=== PATIENT | male | born 1945 | race Caucasian/White ===

== ENCOUNTER 2017-11-04 19:31 | Inpatient (IN) | payer OTHER ==
[~2017-11-04] VITALS: Ht 185.4 cm; Wt 97.7 kg
[2017-11-04 20:38] LABS: BASO % 0.7 %; BASO ABS # 0.06 K/uL (0-0.2); EOS % 2.2 %; HEMATOCRIT 50.7 % (42-52); HEMOGLOBIN 17.6 g/dL (14.0-18.0); IG# 0.01 K/uL (0.00-0.02); LYMPH % 17.3 %; LYMPH ABS # 1.56 K/uL (1.2-3.4); MEAN CELL VOLUME 91.7 fL (80-100); MEAN CORPUSCULAR HEMOGLOBIN 31.8 pg (25-34); MEAN CORPUSCULAR HGB CONC 34.7 g/dl (32-36); MEAN PLATELET VOLUME 9.7 fL (7.4-10.4); MONO % 7.5 %; MONO ABS # 0.68 K/uL (0.11-0.59); NEUT % 72.2 %; NEUT ABS # 6.52 K/uL (1.4-6.5); PLATELET COUNT 198 K/uL (130-400); RED CELL DISTRIBUTION WIDTH CV 13.3 % (11.5-14.5); RED CELL DISTRIBUTION WIDTH SD 44.3 fL (36.4-46.3); WHITE BLOOD COUNT 9.03 K/uL (4.8-10.8)
[2017-11-04 21:03] LABS: BLOOD UREA NITROGEN 10 mg/dl (7-18); CALCIUM 9.5 mg/dl (8.5-10.1); CARBON DIOXIDE 29 mmol/L (21-32); CREATININE 1.03 mg/dl (0.60-1.40); GLUCOSE 123 mg/dl (70-99); POTASSIUM 3.4 mmol/L (3.5-5.1); SODIUM 138 mmol/L (136-145)
--- NOTE | 2017-11-04 21:27 | DIAGNOSTIC IMAGING REPORT ---
CHEST 2 VIEWS ROUTINE CLINICAL HISTORY: Shortness of breath and hemoptysis. COMPARISON STUDY: No previous studies for comparison. FINDINGS: Right infrahilar opacity corresponds to opacity projecting over the heart on lateral projection and suggests right middle lobe opacity although the right heart border is not obscured. Minimal left basilar opacity favors atelectasis. There is no pneumothorax or pleural effusion. Cardiac size is normal. There is no evidence for pulmonary edema. IMPRESSION: Moderate right lower lung opacity, likely within the right middle lobe. This favors pneumonia however atelectasis could appear similar. Radiographic follow up to ensure resolution is recommended to exclude the possibility of an underlying lesion. Electronically signed by: Feng Tatum M.D. 11/04/2017 9:26 PM Dictated Date/Time: 11/04/2017 9:24 PM
[2017-11-04] MEDS ORDERED: SODIUM CHLORIDE 0.9% 1000ML 1,000 ML IV STA (21:57)
[2017-11-04] MEDS ORDERED: OPTIRAY 320 IV PRN (22:30)
--- NOTE | 2017-11-04 22:47 | DIAGNOSTIC IMAGING REPORT ---
CT ANGIOGRAPHY OF THE CHEST, PULMONARY EMBOLUS PROTOCOL CLINICAL HISTORY: Hemoptysis. Elevated d-dimer. COMPARISON STUDY: Chest radiograph performed earlier today. TECHNIQUE: Following IV administration of 85 mL of Optiray-320, helical axial images of the chest were obtained utilizing the pulmonary embolus protocol. Maximal intensity projections and sagittal and coronal reformats were viewed on an independent 3D workstation. IV contrast was administered without complication. A dose lowering technique was utilized adhering to the principles of ALARA. CT DOSE: 611.58 mGy.cm FINDINGS: No central pulmonary embolus is identified. There is an 8 mm irregular nodular density within the anterior segment of the right upper lobe shown on image 168 of 12/20/1946. This is immediately adjacent to a subsegmental pulmonary artery. A small amount of intraluminal thrombus cannot be excluded. No definite pulmonary emboli are identified although segmental and subsegmental pulmonary arteries within the lower lobes are suboptimally assessed due to respiratory motion. The size of the heart is normal. There is no pericardial effusion. There are no enlarged thoracic lymph nodes. There is mild dilatation of the central pulmonary arteries. Lung hyperinflation with mild emphysema is noted. Moderate airspace opacities are noted within the right middle and right lower lobes with mild opacity within the left lower lobe. There are moderate secretions within the trachea and mainstem bronchi. There is no pneumothorax. There is no pleural effusion. No cavitation is present. No suspicious osseous lesions are present. This is a gallstone within the gallbladder. IMPRESSION: 1. No definite pulmonary emboli identified. 8 mm spiculated nodular density within the anterior segment of the right upper lobe which is immediately adjacent to a subsegmental pulmonary artery. A small amount of intraluminal thrombus would be difficult to exclude however an indeterminate but suspicious pulmonary nodule is favored. An infectious process could appear similar. A follow-up chest CT in one month is recommended given the possibility of a neoplasm. 2. Moderate airspace opacities within the right middle, right lower and left lower lobes. The findings favor pneumonia. However, aspiration or hemorrhage could appear similar. 3. Moderate secretions within the trachea and mainstem bronchi which raise the possibility of aspiration. 4. Emphysema. 5. Mild dilatation of the central pulmonary arteries which raises the possibility of pulmonary arterial hypertension. 6. Cholelithiasis. Electronically signed by: Feng Tatum M.D. 11/04/2017 10:46 PM Dictated Date/Time: 11/04/2017 10:26 PM
--- NOTE | 2017-11-04 23:00 | EMERGENCY ROOM VISIT NOTE ---
History Report prepared by Baljit: Sona Patiño Under the Supervision of: Dr. Megan Correa D.O. First contact with patient: 19:56 Chief Complaint: NOSE BLEED (MINOR) Stated Complaint: COUGHING UP BLOOD History of Present Illness The patient is a 72 year old male who presents to the Emergency Room with complaints of an episode of a nose bleed starting 22 hours ago. The patient states that last night he woke up and blew his nose with a little blood in it. He states that he sat up and ended up coughing up blood. He states that he went back to sleep and woke up this morning having his normal nasal drainage that he has every morning. He reports that he took NyQuil 10 hours ago and went back to sleep. He states that when he woke up he was coughing up a lot more blood. He reports that he does not feel like it is coming from his chest. The patient complains of chills, feeling jittery, and weakness. The patient denies recent pneumonia, chest cold, being around someone sick, nausea, hematuria, chest pain , hematochezia, and fevers. The patient denies the use of blood thinners and notes he uses Motrin, Advil, Tylenol, and Aleve once a year. Source of History: patient Onset: 22 hours ago Position: nose Quality: other (bleeding) Timing: other (episode) Associated Symptoms: + chills, + cough (with blood), + weakness, No fevers, No chest pain, No nausea, No hematochezia, No urinary symptoms (hematuria) Note: The patient complains of feeling jittery. Review of Systems See HPI for pertinent positives & negatives. A total of 10 systems reviewed and were otherwise negative. Past Medical & Surgical Medical Problems: (1) No Known Active Medical Problems (2) Respiratory failure, acute Family History Patient reports no known family medical history. Social History Smoking Status: Current Every Day Smoker Marital Status: single Housing Status: lives alone Current/Historical Medications Scheduled Amoxicillin & Pot Clavulanate (Augmentin 875-125 mg), 1 TAB PO BID Lisinopril (Lisinopril), 5 MG PO QAM Prednisone Tab (Prednisone), 10 MG PO UD Scheduled PRN Albuterol Hfa (Ventolin Hfa), 2 PUFFS INH Q6H PRN for SOB/Wheezing Benzonatate (Benzonatate), 100 MG PO Q8H PRN for Cough Allergies Coded Allergies: No Known Allergies (Unverified , 11/04/17) Physical Exam Vital Signs Date Time Temp Pulse Resp B/P (MAP) Pulse Ox O2 Delivery O2 Flow Rate FiO2 11/04/17 22:39 99 20 178/103 85 Room Air 11/04/17 20:48 95 20 189/104 92 Room Air 11/04/17 19:33 36.7 99 20 202/105 90 Room Air Physical Exam GENERAL: alert, well appearing, well nourished, no distress, non-toxic EYE EXAM: Normal conjunctiva, PERRL and EOM's grossly intact NOSE: No active epistaxis, no fresh clot, bilateral mucosal hyperemia. OROPHARYNX: No exudate, no erythema, lips, buccal mucosa, and tongue normal and mucous membranes are moist, scant blood in posterior oropharynx NECK: supple, no nuchal rigidity, no adenopathy, non-tender LUNGS: Diminished breath sounds bilaterally. No wheezes, rhonchi, or rales. Clear to auscultation. Normal chest wall mechanics HEART: no murmurs, S1 normal and S2 normal ABDOMEN: abdomen soft, non-tender, normo-active bowel sounds, no masses, no rebound or guarding. BACK: Back is symmetrical on inspection and there is no deformity, no midline tenderness, no CVA tenderness. SKIN: no rashes and no bruising UPPER EXTREMITIES: upper extremities are grossly normal. LOWER EXTREMITIES: No pitting edema. NEURO EXAM: Normal sensorium, cranial nerves II-XII grossly intact, normal speech, no gross weakness of arms, no gross weakness of legs. Medical Decision & Procedures ER Provider Diagnostic Interpretation: Radiology results have been interpreted by the radiologist and reviewed by me. CHEST 2 VIEWS ROUTINE CLINICAL HISTORY: Shortness of breath and hemoptysis. COMPARISON STUDY: No previous studies for comparison. FINDINGS: Right infrahilar opacity corresponds to opacity projecting over the heart on lateral projection and suggests right middle lobe opacity although the right heart border is not obscured. Minimal left basilar opacity favors atelectasis. There is no pneumothorax or pleural effusion. Cardiac size is normal. There is no evidence for pulmonary edema. IMPRESSION: Moderate right lower lung opacity, likely within the right middle lobe. This favors pneumonia however atelectasis could appear similar. Radiographic follow up to ensure resolution is recommended to exclude the possibility of an underlying lesion. Electronically signed by: Feng Tatum M.D. 11/04/2017 9:26 PM Dictated Date/Time: 11/04/2017 9:[address] ANGIOGRAPHY OF THE CHEST, PULMONARY EMBOLUS PROTOCOL CLINICAL HISTORY: Hemoptysis. Elevated d-dimer. COMPARISON STUDY: Chest radiograph performed earlier today. TECHNIQUE: Following IV administration of 85 mL of Optiray-320, helical axial images of the chest were obtained utilizing the pulmonary embolus protocol. Maximal intensity projections and sagittal and coronal reformats were viewed on an independent 3D workstation. IV contrast was administered without complication. A dose lowering technique was utilized adhering to the principles of ALARA. CT DOSE: 611.58 mGy.cm FINDINGS: No central pulmonary embolus is identified. There is an 8 mm irregular nodular density within the anterior segment of the right upper lobe shown on image 168 of 12/20/1946. This is immediately adjacent to a subsegmental pulmonary artery. A small amount of intraluminal thrombus cannot be excluded. No definite pulmonary emboli are identified although segmental and subsegmental pulmonary arteries within the lower lobes are suboptimally assessed due to respiratory motion. The size of the heart is normal. There is no pericardial effusion. There are no enlarged thoracic lymph nodes. There is mild dilatation of the central pulmonary arteries. Lung hyperinflation with mild emphysema is noted. Moderate airspace opacities are noted within the right middle and right lower lobes with mild opacity within the left lower lobe. There are moderate secretions within the trachea and mainstem bronchi. There is no pneumothorax. There is no pleural effusion. No cavitation is present. No suspicious osseous lesions are present. This is a gallstone within the gallbladder. IMPRESSION: 1. No definite pulmonary emboli identified. 8 mm spiculated nodular density within the anterior segment of the right upper lobe which is immediately adjacent to a subsegmental pulmonary artery. A small amount of intraluminal thrombus would be difficult to exclude however an indeterminate but suspicious pulmonary nodule is favored. An infectious process could appear similar. A follow-up chest CT in one month is recommended given the possibility of a neoplasm. 2. Moderate airspace opacities within the right middle, right lower and left lower lobes. The findings favor pneumonia. However, aspiration or hemorrhage could appear similar. 3. Moderate secretions within the trachea and mainstem bronchi which raise the possibility of aspiration. 4. Emphysema. 5. Mild dilatation of the central pulmonary arteries which raises the possibility of pulmonary arterial hypertension. 6. Cholelithiasis. Electronically signed by: Feng Tatum M.D. 11/04/2017 10:46 PM Dictated Date/Time: 11/04/2017 10:26 PM Laboratory Results Test 11/04/17 20:25 Prothrombin Time 10.4 SECONDS (9.0-12.0) Prothromb Time International Ratio 1.0 (0.9-1.1) D-Dimer 1000 ug/L FEU (0-500) Magnesium Level 2.1 mg/dl (1.8-2.4) Total Bilirubin 0.7 mg/dl (0.2-1) Direct Bilirubin 0.2 mg/dl (0-0.2) Aspartate Amino Transf (AST/SGOT) 16 U/L (15-37) Alanine Aminotransferase (ALT/SGPT) 19 U/L (12-78) Alkaline Phosphatase 70 U/L (45-117) Troponin I < 0.015 ng/ml (0-0.045) Total Protein 7.9 gm/dl (6.4-8.2) Albumin 4.1 gm/dl (3.4-5.0) Thyroid Stimulating Hormone (TSH) 1.150 uIu/ml (0.300-4.500) Laboratory results per my review. Medications Administered Medications (Trade) Dose Ordered Sig/Eddie Route Start Time Stop Time Status Last Admin Dose Admin Sodium Chloride 1,000 ml @ 999 mls/hr Q1H1M STAT IV 11/04/17 21:57 11/04/17 22:57 DC 11/04/17 21:57 999 MLS/HR Piperacillin Sod/ Tazobactam Sod (Zosyn Iv) 4.5 gm NOW STAT IV 11/04/17 23:05 11/04/17 23:08 DC 11/04/17 23:55 4.5 GM Potassium Chloride (Klor-Con M10) 40 meq NOW STAT PO 11/04/17 23:10 11/04/17 23:12 DC 11/04/17 23:52 40 MEQ Methylprednisolone Sodium Succinate (Solu-Medrol IV) 40 mg NOW STAT IV 11/04/17 23:12 11/04/17 23:13 DC 11/04/17 23:48 40 MG ECG Indication: weakness Rate (beats per minute): 98 Rhythm: sinus rhythm Findings: 1st degree AV block, no acute ischemic change, other (normal axis, normal QRS, normal QT-c, abberant baseline) ED Course 1956: The patient was evaluated in room C4. A complete history and physical exam was performed. 2156: Ordered NSS 1000 ml @ 999 mls/hr IV. 2214: I interpreted the patient's EKG at this time. 2234: Pt dropped oxygen sats to 85% per nursing staff. Placed on NC. 2250: I updated the patient and he is doing well. 2304: Ordered Zosyn Iv 4.5 gm IV. 2305: I reviewed the patient's case with Dr. Sebastian Carroll. He will evaluate the patient for further management. Medical Decision The patient is a 72 year old male who presents to the Emergency Room with complaints of an episode of a nose bleed starting 22 hours ago. Differential diagnosis: Etiologies such as anterior epistaxis, coagulopathy, traumatic injury, fracture , septal hematoma, posterior epistaxis, pneumonia, PE, tumor, as well as other pathologies were entertained. Patient with multilobar pneumonia, an episode of hypoxia here. No evidence of bacteremia/sepsis. No recurrent epistaxis here. Concern for hemoptysis possibly related to mass versus PE versus infection. Patient's vital signs stable throughout. Patient with a history of tobacco abuse and does not really see a physician and is not taking her regular medications. Patient not anticoagulated. Patient and family made aware of all findings and results at bedside and discussed need for additional evaluation and admission. They verbalized understanding were agreeable with plan. Blood cultures drawn, and IV antibiotics started on the emergency room. Given findings primarily on the right side, covered with Zosyn in case of possible aspiration. This was discussed with the hospitalist, and they were agreeable the time of presentation. Medication Reconcilliation Current Medication List: was personally reviewed by me Blood Pressure Screening Patient's blood pressure: Elevated blood pressure Will be further monitored by the hospitalist. Consults Time Called: [phone] Consulting Physician: Dr. Sebastian Carroll Returned Call: [phone] I reviewed the patient's case with Dr. Sebastian Carroll. He will evaluate the patient for further management. Impression Primary Impression: Hemoptysis Additional Impressions: Pneumonia Hypoxia Hypokalemia Scribe Attestation The scribe's documentation has been prepared under my direction and personally reviewed by me in its entirety. I confirm that the note above accurately reflects all work, treatment, procedures, and medical decision making performed by me. Departure Information Dispostion Being Evaluated By Hospitalist Prescriptions Albuterol Hfa (VENTOLIN HFA) 200 Puffs/16903 Mcg Aers 2 PUFFS INH Q6H Y for SOB/Wheezing, #1 INHALER Prov: Jennifer Hartman ., D.O. 11/06/17 Amoxicillin & Pot Clavulanate (Augmentin 875-125 mg) 1 Tab Tab 1 TAB PO BID for 5 Days, #10 TAB Prov: Jennifer Hartman ., D.O. 11/06/17 Prednisone Tab (PREDNISONE) 10 Mg Tab 10 MG PO UD, #22 TAB 40mg (4 tabs) x1 day, 30mg (3 tabs) x3days, 20mg (2 tabs) x3days, 10mg (1 tab)x 3days Prov: Jennifer Hartman ., D.O. 11/06/17 Benzonatate (Benzonatate) 100 Mg Cap 100 MG PO Q8H Y for Cough, #30 CAP Prov: Jennifer Hartman ., D.O. 11/06/17 Lisinopril (Lisinopril) 5 Mg Tab 5 MG PO QAM, #30 TAB Prov: Jennifer Hartman ., D.O. 11/06/17 Referrals No Doctor, Assigned (PCP) Patient Instructions My [facility] Problem Qualifiers Additional Impressions: Pneumonia Pneumonia type: due to unspecified organism Laterality: bilateral Lung location: unspecified part of lung Qualified Codes: J18.9 - Pneumonia, unspecified organism
[2017-11-04] MEDS ORDERED: PIPERACILLIN/TAZOBACTAM 4.5 GM/100ML D5W IV STA (23:05)
[2017-11-04] MEDS ORDERED: POTASSIUM CHLORIDE 10 MEQ TABCR PO STA (23:10)
[2017-11-04] MEDS ORDERED: METHYLPREDNISOLONE IV 40 MG in SYRINGE 0 ML IV ONE (23:15)
[2017-11-04 23:46] LABS: ALBUMIN 4.1 gm/dl (3.4-5.0); ALKALINE PHOSPHATASE 70 U/L (45-117); ALT/SGPT 19 U/L (12-78); AST/SGOT 16 U/L (15-37); TOTAL PROTEIN 7.9 gm/dl (6.4-8.2)
[2017-11-04] MEDS ORDERED: LISINOPRIL 5 MG TAB PO ONE (23:50)
[2017-11-04] MEDS ORDERED: LEVALBUTEROL/IPRATROPIUM NEB INH STA (23:52)
[2017-11-05] VITALS (12 sets, daily range): BP systolic 113–157; BP diastolic 62–91; PULSE 72–94; TEMP 36.7–37.1; O2SAT 92–96; Ht 185.4 cm; Wt 97.7 kg
[2017-11-05] MEDS ORDERED: ACETAMINOPHEN 325 MG TAB PO PRN
[2017-11-05] MEDS ORDERED: BENZONATATE 100MG CAP PO PRN
[2017-11-05] MEDS ORDERED: LEVALBUTEROL/IPRATROPIUM NEB INH PRN
[2017-11-05] MEDS ORDERED: PROCHLORPERAZINE INJ 5 MG in SYRINGE 4 ML IV PRN
[2017-11-05] MEDS ORDERED: LORAZEPAM 2 MG/ML 1 ML VIAL IV PRN
[2017-11-05] MEDS ORDERED: LEVALBUTEROL 1.25MG/0.5ML NEB INH STA (00:29)
[2017-11-05] MEDS ORDERED: IPRATROPIUM BROMIDE NEB SOLN 0.02% 2.5 ML VIAL INH STA (00:29)
[2017-11-05] MEDS ORDERED: IPRATROPIUM BROMIDE NEB SOLN 0.02% 2.5 ML VIAL INH PRN (00:30)
[2017-11-05] MEDS ORDERED: LEVALBUTEROL 1.25MG/0.5ML NEB INH PRN (00:30)
--- NOTE | 2017-11-05 00:50 | HISTORY & PHYSICAL EXAMINATION ---
DATE OF ADMISSION: 11/04/2017 CHIEF COMPLAINT: Hemoptysis. HISTORY OF PRESENT ILLNESS: History obtained from the patient and son. Medical history significant for hypertension not on meds, ongoing tobacco abuse. Patient moved to [facility] from [place] in 2007 when his . Last night he noted coughing symptoms and hemoptysis, later noted of self-limited epistaxis upon sneezing. Denies headache. No chest pain, increasing shortness of breath. Denies aspiration. No fever, no chills, no sick contacts. No hematemesis, no black/bloody stools, no abdominal pain. No previous episodes. No unusual weight loss. Brought to Emergency Room. Patient received Zosyn for pneumonia. MEDICAL HISTORY: As above. No hx of pneumococcal vaccination. Last seasonal flu vaccine was in the 1970s . SURGERIES: Hernia surgery, tibia surgery. HOME MEDICATIONS: None. ALLERGIES: No known drug allergies. FAMILY HISTORY: There is a family history of hypertension, diabetes and lymphoma. PERSONAL AND SOCIAL HISTORY: 50 pack years. Denies chronic alcoholic beverage intake. Retired from road construction. REVIEW OF SYSTEMS: As per HPI. All 10 systems reviewed. All other ROS negative. PHYSICAL EXAMINATION: VITAL SIGNS: Blood pressure was noted to be 202/105, later 172/103, pulse rate 99, RR 26, temperature 36.7, sats 86 on room air. GENERAL: Noted to be in minimal resp distress, anxious, tremulous. SKIN: Warm. Normal color. HEENT: Onycha palpebral conjunctivae. No ptosis. Dry mucosa. Nasal cannula in place. NECK: Supple. No tenderness. CHEST: Decreased breath sounds. No tenderness. HEART: Regular rate and rhythm. No murmur. ABDOMEN: Soft, nontender. EXTREMITIES: No edema, no tenderness. No gross deformity. NEUROLOGIC: Coherent. No gross focality. LABORATORY DATA: Hemoglobin was noted to be 17.6, hematocrit 50, white cells 9, platelets noted to be 198. Sodium 138, potassium 3.4, chloride 104, CO2 of 29, BUN 10, creatinine 1, glucose was noted to be 123. ABG: pH 7.37, pCO2 of 44, pO2 87 on 4 liters. CTA showed no definite pulmonary emboli, 8 mm spiculated nodular density in the right upper lobe adjacent to a subsegmental pulmonary artery, suspicious pulmonary nodules versus infectious process. Follow up chest CT recommended. Moderate airspace opacities in the right middle and right lower and left lower lobes. Moderate secretions with endotracheal main stem bronchi, question of aspiration; emphysema. EKG as per my interpretation rate 100 NSR, first-degree AV block, no ischemia ASSESSMENT: 1. Acute hypoxemic respiratory failure secondary to community-acquired pneumonia Possible COPD Exacerbation (no previous diagnosis, emphysematous lungs on CT) question of aspiration. No sepsis. 2. Hypertensive urgency. Likely chronic Patient aware of BP elevation on multiple occasions in the past. 3. hypokalemia 4. Ongoing tobacco abuse. PLAN: PCU supplemental O2. Unasyn Solu-Medrol 1 dose nebs stat, RTC p.r.n. Prednisone course Antitussives prn Initiate lisinopril for blood pressure control. Replace potassium. Pulmonary consult, hemoptysis, respiratory failure, abnormal CT chest Outpatient PFTs DVT prophylaxis, SCDs RE hemoptysis. Level 3 code status. Okay with cardioversion. No mechanical ventilation. Patient's son requesting for updates from providers. Mr. Vernon Oshea at [phone]. He requests that his father be set up with [facility] for PCP services on discharge. YADI
[2017-11-05] MEDS ORDERED: NSS + 20MEQ KCL 1000ML 1,000 ML IV ONE (01:00)
[2017-11-05] MEDS ORDERED: PNEUMOCOCCAL ADMINISTRATION CHARGE ONE (01:00)
[2017-11-05] MEDS ORDERED: INFLUENZA ADMINISTRATION CHARGE ONE ×2 (01:00→02:15)
[2017-11-05] MEDS ORDERED: INFLUENZA VIRUS QUAD VACCINE 0.5 ML SYR IM. ONE ×2 (01:00)
[2017-11-05] MEDS ORDERED: PNEUMOCOCCAL POLYSACCHARIDES 25 MCG/0.5 ML VIAL/SYR IM. ONE ×2 (01:00)
[2017-11-05] MEDS ORDERED: INFLUENZA VACCINE HIGH DOSE 65+ 0.5 ML SYR IM. ONE (02:15)
[2017-11-05] MEDS ORDERED: IPRATROPIUM BROMIDE NEB SOLN 0.02% 2.5 ML VIAL INH SCH (03:00)
[2017-11-05] MEDS ORDERED: LEVALBUTEROL 1.25MG/0.5ML NEB INH SCH (03:00)
[2017-11-05] MEDS: AMPICILLIN/SULBACTAM SOD INJ 3,000 MG in SODIUM CHLORIDE 0.9% 100ML 100 ML IV SCH ×4 (03:47→21:27)
[2017-11-05 05:55] LABS: BASO % 0.4 %; BASO ABS # 0.03 K/uL (0-0.2); HEMATOCRIT 46.1 % (42-52); HEMOGLOBIN 15.7 g/dL (14.0-18.0); IG# 0.01 K/uL (0.00-0.02); LYMPH % 8.3 %; LYMPH ABS # 0.59 K/uL (1.2-3.4); MEAN CELL VOLUME 91.8 fL (80-100); MEAN CORPUSCULAR HEMOGLOBIN 31.3 pg (25-34); MEAN CORPUSCULAR HGB CONC 34.1 g/dl (32-36); MONO % 0.6 %; MONO ABS # 0.04 K/uL (0.11-0.59); NEUT % 90.6 %; NEUT ABS # 6.48 K/uL (1.4-6.5); PLATELET COUNT 200 K/uL (130-400); RED CELL DISTRIBUTION WIDTH CV 13.4 % (11.5-14.5); RED CELL DISTRIBUTION WIDTH SD 44.5 fL (36.4-46.3); WHITE BLOOD COUNT 7.15 K/uL (4.8-10.8)
[2017-11-05 06:37] LABS: CALCIUM 8.8 mg/dl (8.5-10.1); CREATININE 0.88 mg/dl (0.60-1.40)
[2017-11-05] MEDS: LEVALBUTEROL 1.25MG/0.5ML NEB INH SCH ×3 (09:00→19:33)
[2017-11-05] MEDS ORDERED: LEVALBUTEROL/IPRATROPIUM NEB INH SCH ×2 (09:00)
[2017-11-05] MEDS: NICOTINE 21 MG/24 HR TDSY TD SCH (09:00)
[2017-11-05] MEDS ORDERED: AMPICILLIN/SULBACTAM CONSULT ACTIVE PRN (09:00)
[2017-11-05] MEDS: IPRATROPIUM BROMIDE NEB SOLN 0.02% 2.5 ML VIAL INH SCH ×3 (09:00→19:33)
[2017-11-05 12:20] LABS: HEMATOCRIT 45.5 % (42-52); HEMOGLOBIN 15.7 g/dL (14.0-18.0)
--- NOTE | 2017-11-05 17:41 | Pulmonary Consultation ---
History General Date of Service: Nov 05, 2017. Chief Complaint: hemoptysis Stated Complaint: Respiratory Failure, Acute HPI The patient is a 72 year old male who presents to [facility] with complaints of Respiratory Failure, Acute. The patient's primary care provider is No Doctor, Assigned. Patient presented with hemoptysis at home 2 days ago. He has never had this prior so he presented to the ED. He was found to have right sided pneumonia and incidental finding of an 8mm right upper lobe spiculated nodule. He reports that he has had no further hemoptysis since admission. The patient has a 92-[id number] smoking history but quit smoking many years ago when his father . The patient moved to the area from [place] [facility]. He currently lives with his significant other and has had minimal medical problems. He does report a history of untreated borderline hypertension. He denies any other significant health problems. He has had six beers within the last 12 months and only drinks on special occasions. He has no known allergies. He does have two cockatiel birds which are caged in living room approximate 20 feet from where he normally sits to watch TV. His significant other changes the bedding and the birds are never out of the cage. He has no recent travel or travel outside of the [place]. He has no prior history of thromboembolic disease. No prior history of pulmonary disease. No prior history of malignancy. He is unaware of any first-degree relative history of malignancy. The patient states that today his breathing is much improved. He is on 2 L of supplemental oxygen via nasal cannula. He has been moving about the room with no difficulty. He feels appropriate and ready for discharge and questions discharge planning. He has no other acute complaints. Review of Systems A total of 12 systems was reviewed and is negative other than as listed above in the HPI All Other Symptoms All Other Systems: Reviewed and Negative Past Medical History Past Medical History: Medical Problems: (1) untreated borderline hypertension (2) Respiratory failure, acute (3) [id number] history of tobacco abuse. Quit smoking many years ago Past Surgical History: Past surgical history: Carpal tunnel release Right inguinal hernia repair Family History Patient reports no known family medical history. Social History Hx Tobacco Use In Past Year?: No Smoking Status: Former Smoker (quit smoking when his father many years ago ) Alcohol: occasional Marital status: single, in relationship (significant other for the past eight years) Housing status: lives with significant other Occupational Status: retired (from construction) Allergies Coded Allergies: No Known Allergies (Unverified , 11/04/17) Current Medications Reported Home Medications Medications Dose Route/Sig Max Daily Dose Days Date Category No Active Prescriptions or Reported Medications Rx Physical Physical Exam Vital Signs: Date Time Temp Pulse Resp B/P (MAP) Pulse Ox O2 Delivery O2 Flow Rate FiO2 11/05/17 16:00 93 Nasal Cannula 2.0 11/05/17 15:17 37.1 88 18 134/83 (100) 92 Nasal Cannula 2.0 11/05/17 14:21 76 16 96 Nasal Cannula 2.0 11/05/17 12:15 Nasal Cannula 2.0 11/05/17 11:19 36.9 80 20 136/75 (95) 92 Nasal Cannula 2.0 11/05/17 08:15 93 Nasal Cannula 2.0 11/05/17 07:05 36.9 86 18 128/71 (90) 93 Room Air 11/05/17 04:00 Nasal Cannula 2.5 11/05/17 03:39 37.1 79 20 132/62 (85) 95 Nasal Cannula 2.5 11/05/17 00:35 36.8 94 20 157/91 Nasal Cannula 2.5 11/05/17 00:25 95 18 161/102 94 11/04/17 22:39 99 20 178/103 85 Room Air 11/04/17 20:48 95 20 189/104 92 Room Air 11/04/17 19:33 36.7 99 20 202/105 90 Room Air Weight in Kilograms: 97.7 GENERAL : No acute distress EYES: No icterus, gaze conjugate NOSE: No evidence of epistaxis. Nasal cannula in place MOUTH: No lesions or candidiasis NECK: Supple LUNGS: CTA B/L, no wheezes, rales or rhonchi HEART: Regular, rate controlled ABDOMEN: Soft, NT, ND, BS Present EXTREMITIES: No LE edema, pedal pulses intact NEURO: A&OX3 Diagnostics Labs Results Past 24 Hours Test 11/04/17 20:25 11/04/17 23:42 11/05/17 05:15 11/05/17 12:14 Range/Units White Blood Count 9.03 7.15 4.8-10.8 K/uL Red Blood Count 5.53 5.02 4.7-6.1 M/uL Hemoglobin 17.6 15.7 15.7 14.0-18.0 g/dL Hematocrit 50.7 46.1 45.5 42-52 % Mean Corpuscular Volume 91.7 91.8 80-100 fL Mean Corpuscular Hemoglobin 31.8 31.3 25-34 pg Mean Corpuscular Hemoglobin Concent 34.7 34.1 32-36 g/dl Platelet Count 198 200 130-400 K/uL Mean Platelet Volume 9.7 10.0 7.4-10.4 fL Neutrophils (%) (Auto) 72.2 90.6 % Lymphocytes (%) (Auto) 17.3 8.3 % Monocytes (%) (Auto) 7.5 0.6 % Eosinophils (%) (Auto) 2.2 0.0 % Basophils (%) (Auto) 0.7 0.4 % Neutrophils # (Auto) 6.52 6.48 1.4-6.5 K/uL Lymphocytes # (Auto) 1.56 0.59 1.2-3.4 K/uL Monocytes # (Auto) 0.68 0.04 0.11-0.59 K/uL Eosinophils # (Auto) 0.20 0.00 0-0.5 K/uL Basophils # (Auto) 0.06 0.03 0-0.2 K/uL RDW Standard Deviation 44.3 44.5 36.4-46.3 fL RDW Coefficient of Variation 13.3 13.4 11.5-14.5 % Immature Granulocyte % (Auto) 0.1 0.1 % Immature Granulocyte # (Auto) 0.01 0.01 0.00-0.02 K/uL Prothrombin Time 10.4 9.0-12.0 SECONDS Prothromb Time International Ratio 1.0 0.9-1.1 D-Dimer 1000 0-500 ug/L FEU Sodium Level 138 139 136-145 mmol/L Potassium Level 3.4 4.0 3.5-5.1 mmol/L Chloride Level 104 108 98-107 mmol/L Carbon Dioxide Level 29 27 21-32 mmol/L Anion Gap 5.0 4.0 3-11 mmol/L Blood Urea Nitrogen 10 10 7-18 mg/dl Creatinine 1.03 0.88 0.60-1.40 mg/dl Est Creatinine Clear Calc Drug Dose 81.0 94.8 ml/min Estimated GFR () 84.3 100.2 Estimated GFR (Non- 72.7 86.4 BUN/Creatinine Ratio 10.0 10.9 10-20 Random Glucose 123 136 70-99 mg/dl Calcium Level 9.5 8.8 8.5-10.1 mg/dl Magnesium Level 2.1 1.8-2.4 mg/dl Total Bilirubin 0.7 0.2-1 mg/dl Direct Bilirubin 0.2 0-0.2 mg/dl Aspartate Amino Transf (AST/SGOT) 16 15-37 U/L Alanine Aminotransferase (ALT/SGPT) 19 12-78 U/L Alkaline Phosphatase 70 45-117 U/L Troponin I < 0.015 0-0.045 ng/ml Total Protein 7.9 6.4-8.2 gm/dl Albumin 4.1 3.4-5.0 gm/dl Thyroid Stimulating Hormone (TSH) 1.150 0.300-4.500 uIu/ml Arterial Blood pH 7.37 7.35-7.45 Arterial Blood Partial Pressure CO2 44 35-46 mmHg Arterial Blood Partial Pressure O2 87 80-95 mm/Hg Arterial Blood HCO3 25 19-24 mmol/L Arterial Blood Oxygen Saturation 96.1 90-95 % Arterial Blood Base Excess -0.3 -9-1.8 mEq/L Arterial Blood Gas Delivery 4 L Jozef Test POS POS Ethyl Alcohol mg/dL < 3.0 0-3 mg/dl Microbiology Results 11/04/17 Blood Culture, Received Pending 11/04/17 Blood Culture, Received Pending Diagnostic Radiology CT ANGIOGRAPHY OF THE CHEST, PULMONARY EMBOLUS PROTOCOL CLINICAL HISTORY: Hemoptysis. Elevated d-dimer. COMPARISON STUDY: Chest radiograph performed earlier today. TECHNIQUE: Following IV administration of 85 mL of Optiray-320, helical axial images of the chest were obtained utilizing the pulmonary embolus protocol. Maximal intensity projections and sagittal and coronal reformats were viewed on an independent 3D workstation. IV contrast was administered without complication. A dose lowering technique was utilized adhering to the principles of ALARA. CT DOSE: 611.58 mGy.cm FINDINGS: No central pulmonary embolus is identified. There is an 8 mm irregular nodular density within the anterior segment of the right upper lobe shown on image 168 of 12/20/1946. This is immediately adjacent to a subsegmental pulmonary artery. A small amount of intraluminal thrombus cannot be excluded. No definite pulmonary emboli are identified although segmental and subsegmental pulmonary arteries within the lower lobes are suboptimally assessed due to respiratory motion. The size of the heart is normal. There is no pericardial effusion. There are no enlarged thoracic lymph nodes. There is mild dilatation of the central pulmonary arteries. Lung hyperinflation with mild emphysema is noted. Moderate airspace opacities are noted within the right middle and right lower lobes with mild opacity within the left lower lobe. There are moderate secretions within the trachea and mainstem bronchi. There is no pneumothorax. There is no pleural effusion. No cavitation is present. No suspicious osseous lesions are present. This is a gallstone within the gallbladder. IMPRESSION: 1. No definite pulmonary emboli identified. 8 mm spiculated nodular density within the anterior segment of the right upper lobe which is immediately adjacent to a subsegmental pulmonary artery. A small amount of intraluminal thrombus would be difficult to exclude however an indeterminate but suspicious pulmonary nodule is favored. An infectious process could appear similar. A follow-up chest CT in one month is recommended given the possibility of a neoplasm. 2. Moderate airspace opacities within the right middle, right lower and left lower lobes. The findings favor pneumonia. However, aspiration or hemorrhage could appear similar. 3. Moderate secretions within the trachea and mainstem bronchi which raise the possibility of aspiration. 4. Emphysema. 5. Mild dilatation of the central pulmonary arteries which raises the possibility of pulmonary arterial hypertension. 6. Cholelithiasis. Electronically signed by: Feng Tatum M.D. 11/04/2017 10:46 PM Impression Assessment and Plan PNEUMONIA * Most likely community-acquired * Associated hemoptysis now resolved * Hemoglobin stable * Started on Unasyn * EKG with QTC of 449 and first-degree AV block * Patient with significant improvement since admission * Titrate supplemental O2 as tolerated to off * Ambulate as tolerated * Outpatient follow-up with pulmonary clinic 8 MM RIGHT UPPER LOBE SPICULATED NODULE * 46-scne-nglo smoking * Quit smoking several years ago when his father * Placed pulmonary lung nodule consult for outpatient monitoring * Follow-up with outpatient clinic HYPERTENSION * Untreated as an outpatient * Good results with lisinopril * Further management by the hospitalist team * Outpatient follow-up with primary care provider DVT PROPHYLAXIS * Chemical prophylaxis held for hemoptysis * Hemoptysis now resolved but would continue with mechanical prophylaxis and increased ambulation Thank you for including us in the care of this patient. We will follow along with you. Please refer to Dr. De La Cruz's addendum for any further recommendations.
--- NOTE | 2017-11-05 18:56 | Progress Note ---
Medicine Progress Note Date & Time of Visit: Nov 05, 2017 at 18:56. Subjective Patient reports feeling better than last night. States his breathing has improved and he is less SOB and has less of a cough. States his cough is productive. No overnight events noted. Patient denies any complaints of pain. Objective Last 8 Hrs Date Time Temp Pulse Resp B/P (MAP) Pulse Ox O2 Delivery O2 Flow Rate FiO2 11/05/17 16:00 93 Nasal Cannula 2.0 11/05/17 15:17 37.1 88 18 134/83 (100) 92 Nasal Cannula 2.0 11/05/17 14:21 76 16 96 Nasal Cannula 2.0 11/05/17 12:15 Nasal Cannula 2.0 11/05/17 11:19 36.9 80 20 136/75 (95) 92 Nasal Cannula 2.0 Physical Exam: GENERAL: Patient is in no acute distress. HEENT: No acute trauma, normocephalic atraumatic, mucous membranes moist, no nasal congestion, no scleral icterus. NECK: No stridor, trachea is midline. LUNGS: Diminished bilaterally, no wheeze, no rhonchi, breath sounds equal. HEART: Without murmurs gallops or rubs, regular rate and rhythm. ABDOMEN: Soft, nontender, bowel sounds positive, no hepatosplenomegaly EXTREMITIES: No cyanosis or edema, full range of motion of all the joints without pain or difficulty NEUROLOGIC: Oriented x 3, no acute motor or sensory deficits, no focal weakness. SKIN: No rash, no jaundice, no diaphoresis. Laboratory Results: Last 24 Hours Test 11/04/17 20:25 11/04/17 23:42 11/05/17 05:15 11/05/17 12:14 White Blood Count 9.03 K/uL 7.15 K/uL Red Blood Count 5.53 M/uL 5.02 M/uL Hemoglobin 17.6 g/dL 15.7 g/dL 15.7 g/dL Hematocrit 50.7 % 46.1 % 45.5 % Mean Corpuscular Volume 91.7 fL 91.8 fL Mean Corpuscular Hemoglobin 31.8 pg 31.3 pg Mean Corpuscular Hemoglobin Concent 34.7 g/dl 34.1 g/dl Platelet Count 198 K/uL 200 K/uL Mean Platelet Volume 9.7 fL 10.0 fL Neutrophils (%) (Auto) 72.2 % 90.6 % Lymphocytes (%) (Auto) 17.3 % 8.3 % Monocytes (%) (Auto) 7.5 % 0.6 % Eosinophils (%) (Auto) 2.2 % 0.0 % Basophils (%) (Auto) 0.7 % 0.4 % Neutrophils # (Auto) 6.52 K/uL 6.48 K/uL Lymphocytes # (Auto) 1.56 K/uL 0.59 K/uL Monocytes # (Auto) 0.68 K/uL 0.04 K/uL Eosinophils # (Auto) 0.20 K/uL 0.00 K/uL Basophils # (Auto) 0.06 K/uL 0.03 K/uL RDW Standard Deviation 44.3 fL 44.5 fL RDW Coefficient of Variation 13.3 % 13.4 % Immature Granulocyte % (Auto) 0.1 % 0.1 % Immature Granulocyte # (Auto) 0.01 K/uL 0.01 K/uL Prothrombin Time 10.4 SECONDS Prothromb Time International Ratio 1.0 D-Dimer 1000 ug/L FEU Sodium Level 138 mmol/L 139 mmol/L Potassium Level 3.4 mmol/L 4.0 mmol/L Chloride Level 104 mmol/L 108 mmol/L Carbon Dioxide Level 29 mmol/L 27 mmol/L Anion Gap 5.0 mmol/L 4.0 mmol/L Blood Urea Nitrogen 10 mg/dl 10 mg/dl Creatinine 1.03 mg/dl 0.88 mg/dl Est Creatinine Clear Calc Drug Dose 81.0 ml/min 94.8 ml/min Estimated GFR () 84.3 100.2 Estimated GFR (Non- 72.7 86.4 BUN/Creatinine Ratio 10.0 10.9 Random Glucose 123 mg/dl 136 mg/dl Calcium Level 9.5 mg/dl 8.8 mg/dl Magnesium Level 2.1 mg/dl Total Bilirubin 0.7 mg/dl Direct Bilirubin 0.2 mg/dl Aspartate Amino Transf (AST/SGOT) 16 U/L Alanine Aminotransferase (ALT/SGPT) 19 U/L Alkaline Phosphatase 70 U/L Troponin I < 0.015 ng/ml Total Protein 7.9 gm/dl Albumin 4.1 gm/dl Thyroid Stimulating Hormone (TSH) 1.150 uIu/ml Arterial Blood pH 7.37 Arterial Blood Partial Pressure CO2 44 mmHg Arterial Blood Partial Pressure O2 87 mm/Hg Arterial Blood HCO3 25 mmol/L Arterial Blood Oxygen Saturation 96.1 % Arterial Blood Base Excess -0.3 mEq/L Arterial Blood Gas Delivery 4 L Jozef Test POS Ethyl Alcohol mg/dL < 3.0 mg/dl Date/Time Source Procedure Growth Status 11/04/17 23:21 Blood Blood Culture Pending Received 11/04/17 23:15 Blood Blood Culture Pending Received Assessment & Plan Acute hypoxemic respiratory failure: -secondary to community-acquired pneumonia vs aspiration pneumonia -possible COPD Exacerbation (no previous diagnosis, emphysematous lungs on CT) -no sepsis -on ampicillin-sulbactam -on PO prednisone -continued on nebs -Pulm consulted, appreciate recs Hypertensive urgency: -not on meds at home but reports having high BP in the past -continue on lisinopril started on admission Hypokalemia: -replete and recheck Ongoing tobacco abuse: -smoking cessation encouraged Lung nodule: -seen on CTA chest -Pulm consulted, will refer to [facility] lung nodule program for surveillance Current Inpatient Medications: Current Inpatient Medications Medications (Trade) Dose Ordered Sig/Eddie Route Start Time Stop Time Status Last Admin Dose Admin Ioversol (Optiray 320) 85 ml UD PRN IV 11/04/17 22:30 11/08/17 22:29 Lisinopril (Zestril Tab) 5 mg QAM PO 11/06/17 09:00 12/06/17 08:59 Ampicillin Sodium/ Sulbactam Sodium (Consult) 1 ea DAILY PRN N/A 11/05/17 09:00 12/05/17 08:59 Benzonatate (Tessalon Perles Cap) 100 mg Q8H PRN PO 11/05/17 00:00 12/05/17 00:00 Acetaminophen (Tylenol Tab) 650 mg Q4H PRN PO 11/05/17 00:00 12/05/17 00:00 Prochlorperazine Edisylate 5 mg/ Syringe 5 ml @ 5 mls/min Q6H PRN IV 11/05/17 00:00 12/05/17 00:00 Lorazepam (Ativan Inj) 0.5 mg Q4H PRN IV 11/05/17 00:00 12/05/17 00:00 Nicotine (Nicoderm Cq 21MG Patch) 1 patch QAM TD 11/05/17 09:00 12/05/17 08:59 Miscellaneous (Remove Nicoderm Patch) 1 ea HS N/A 11/05/17 21:00 12/05/17 20:59 Ipratropium [place] (Atrovent 0.02% 0.5MG/2.5ML Neb) 0.5 mg Q4H PRN INH 11/05/17 00:30 12/05/17 00:29 Levalbuterol (Xopenex 1.25MG/ 0.5ML Neb) 1.25 mg Q4H PRN INH 11/05/17 00:30 12/05/17 00:29 Ampicillin Sodium/ Sulbactam Sodium 3000 mg/Sodium Chloride 108 ml @ 216 mls/hr Q6H IV 11/05/17 04:00 11/12/17 03:59 11/05/17 15:45 216 MLS/HR Prednisone (PredniSONE TAB) 40 mg DAILY PO 11/05/17 09:00 11/10/17 08:59 11/05/17 08:59 40 MG Ipratropium [place] (Atrovent 0.02% 0.5MG/2.5ML Neb) 0.5 mg Q6R INH 11/05/17 09:00 12/05/17 08:59 11/05/17 14:21 0.5 MG Levalbuterol (Xopenex 1.25MG/ 0.5ML Neb) 1.25 mg Q6R INH 11/05/17 09:00 12/05/17 08:59 11/05/17 14:21 1.25 MG
[2017-11-06] VITALS (9 sets, daily range): BP systolic 109–162; BP diastolic 63–92; PULSE 70–86; TEMP 36.5–37; O2SAT 92–99
[2017-11-06] MEDS: LEVALBUTEROL 1.25MG/0.5ML NEB INH SCH ×3 (01:50→14:18)
[2017-11-06] MEDS: IPRATROPIUM BROMIDE NEB SOLN 0.02% 2.5 ML VIAL INH SCH ×3 (01:50→14:18)
[2017-11-06] MEDS: AMPICILLIN/SULBACTAM SOD INJ 3,000 MG in SODIUM CHLORIDE 0.9% 100ML 100 ML IV SCH ×2 (04:16→09:56)
[2017-11-06 06:01] LABS: BASO % 0.1 %; BASO ABS # 0.02 K/uL (0-0.2); EOS % 0.2 %; EOS ABS # 0.04 K/uL (0-0.5); HEMATOCRIT 44.9 % (42-52); HEMOGLOBIN 15.4 g/dL (14.0-18.0); IG# 0.03 K/uL (0.00-0.02); LYMPH % 13.9 %; LYMPH ABS # 2.24 K/uL (1.2-3.4); MEAN CELL VOLUME 91.4 fL (80-100); MEAN CORPUSCULAR HEMOGLOBIN 31.4 pg (25-34); MEAN CORPUSCULAR HGB CONC 34.3 g/dl (32-36); MONO % 7.8 %; MONO ABS # 1.26 K/uL (0.11-0.59); NEUT % 77.8 %; NEUT ABS # 12.53 K/uL (1.4-6.5); PLATELET COUNT 186 K/uL (130-400); RED CELL DISTRIBUTION WIDTH CV 13.4 % (11.5-14.5); RED CELL DISTRIBUTION WIDTH SD 44.7 fL (36.4-46.3); WHITE BLOOD COUNT 16.12 K/uL (4.8-10.8)
[2017-11-06] MEDS ORDERED: LISINOPRIL 5 MG TAB PO SCH (09:00)
[2017-11-06] MEDS: NICOTINE 21 MG/24 HR TDSY TD SCH (09:00)
--- NOTE | 2017-11-06 10:30 | Pulmonology Progress Note ---
Pulmonary Progress Note Date of Service Nov 06, 2017. Attending Dr. De La Cruz Subjective Patient seen and examined at bedside. Last night the patient had one episode of cough around 3 AM. This produced dark sputum but patient is unaware that there was any blood in the sputum. Otherwise the patient has no chest pain or chest tightness no shortness of breath. He has been off supplemental oxygen and is now oxygenating well on room air. He did ambulate in the hallways last evening without difficulty. He is encouraged to continue ambulation with nursing supervision. The patient has no other acute complaints. He questions discharge planning. Objective Vital Signs - as noted below Laboratory Data - as noted below Physical Exam: General - NAD Eyes - No icterus, gaze conjugate ENT - Mucosa moist, no lesions or candidiasis Neck - Supple, No JVD Lungs - No bronchospasm, rales, or rhonchi. Clear to auscultation bilaterally Heart - Regular, rate controlled Abdomen - Soft, NT, ND, BS present Extremities - No edema, pedal pulses intact Neuro - A&OX3 Assessment & Plan PNEUMONIA * Most likely community-acquired. Significantly improved since admission. * Associated hemoptysis now resolved. One episode of cough last night without bloody sputum * Day #2 Unasyn * EKG with QTC of 449 and first-degree AV block * Supplemental O2 titrated off * Continue to Ambulate as tolerated in the hallways * Outpatient follow-up with pulmonary clinic needed 8 MM RIGHT UPPER LOBE SPICULATED NODULE * 69-fbfo-wdfh smoking * Quit smoking several years ago when his father * Placed pulmonary lung nodule consult for outpatient monitoring * Follow-up with outpatient clinic * Will need follow-up CT monitoring as established by the pulmonary lung nodule clinic HYPERTENSION * Untreated as an outpatient * Good results with lisinopril * Further management by the hospitalist team * Outpatient follow-up with primary care provider DVT PROPHYLAXIS * Chemical prophylaxis held for hemoptysis * Hemoptysis now resolved but would continue with mechanical prophylaxis and increased ambulation Thank you for including us in the care of this patient. We will sign off at this time. Please feel free to reconsult as needed. Data Medications: Current Inpatient Medications Medications (Trade) Dose Ordered Sig/Eddie Route Start Time Stop Time Status Last Admin Dose Admin Ioversol (Optiray 320) 85 ml UD PRN IV 11/04/17 22:30 11/08/17 22:29 Lisinopril (Zestril Tab) 5 mg QAM PO 11/06/17 09:00 12/06/17 08:59 11/06/17 09:55 5 MG Ampicillin Sodium/ Sulbactam Sodium (Consult) 1 ea DAILY PRN N/A 11/05/17 09:00 12/05/17 08:59 Benzonatate (Tessalon Perles Cap) 100 mg Q8H PRN PO 11/05/17 00:00 12/05/17 00:00 Acetaminophen (Tylenol Tab) 650 mg Q4H PRN PO 11/05/17 00:00 12/05/17 00:00 Prochlorperazine Edisylate 5 mg/ Syringe 5 ml @ 5 mls/min Q6H PRN IV 11/05/17 00:00 12/05/17 00:00 Lorazepam (Ativan Inj) 0.5 mg Q4H PRN IV 11/05/17 00:00 12/05/17 00:00 Nicotine (Nicoderm Cq 21MG Patch) 1 patch QAM TD 11/05/17 09:00 12/05/17 08:59 Miscellaneous (Remove Nicoderm Patch) 1 ea HS N/A 11/05/17 21:00 12/05/17 20:59 Ipratropium [place] (Atrovent 0.02% 0.5MG/2.5ML Neb) 0.5 mg Q4H PRN INH 11/05/17 00:30 12/05/17 00:29 Levalbuterol (Xopenex 1.25MG/ 0.5ML Neb) 1.25 mg Q4H PRN INH 11/05/17 00:30 12/05/17 00:29 Ampicillin Sodium/ Sulbactam Sodium 3000 mg/Sodium Chloride 108 ml @ 216 mls/hr Q6H IV 11/05/17 04:00 11/12/17 03:59 11/06/17 09:56 216 MLS/HR Prednisone (PredniSONE TAB) 40 mg DAILY PO 11/05/17 09:00 11/10/17 08:59 11/06/17 09:55 40 MG Ipratropium [place] (Atrovent 0.02% 0.5MG/2.5ML Neb) 0.5 mg Q6R INH 11/05/17 09:00 12/05/17 08:59 11/06/17 07:06 0.5 MG Levalbuterol (Xopenex 1.25MG/ 0.5ML Neb) 1.25 mg Q6R INH 11/05/17 09:00 12/05/17 08:59 11/06/17 07:07 1.25 MG Vital Signs: Date Time Temp Pulse Resp B/P (MAP) Pulse Ox O2 Delivery O2 Flow Rate FiO2 11/06/17 08:15 93 Room Air 11/06/17 07:21 36.9 86 16 162/77 (105) 99 Room Air 11/06/17 07:07 70 16 92 Room Air 11/06/17 05:16 36.5 81 20 109/63 (78) 92 Room Air 11/06/17 04:00 Nasal Cannula 2.0 11/06/17 01:50 83 16 97 Nasal Cannula 2.0 11/06/17 00:00 Nasal Cannula 2.0 11/05/17 23:11 36.7 75 18 113/62 (79) 94 Nasal Cannula 2.0 11/05/17 20:00 93 Nasal Cannula 2.0 11/05/17 19:57 36.8 72 18 119/73 (88) 95 Nasal Cannula 2.0 11/05/17 19:33 72 16 95 Nasal Cannula 2.0 11/05/17 16:00 93 Nasal Cannula 2.0 11/05/17 15:17 37.1 88 18 134/83 (100) 92 Nasal Cannula 2.0 11/05/17 14:21 76 16 96 Nasal Cannula 2.0 11/05/17 12:15 Nasal Cannula 2.0 11/05/17 11:19 36.9 80 20 136/75 (95) 92 Nasal Cannula 2.0 Laboratory Results: Last 24 Hours Test 11/05/17 12:14 11/06/17 05:13 Hemoglobin 15.7 g/dL 15.4 g/dL Hematocrit 45.5 % 44.9 % White Blood Count 16.12 K/uL Red Blood Count 4.91 M/uL Mean Corpuscular Volume 91.4 fL Mean Corpuscular Hemoglobin 31.4 pg Mean Corpuscular Hemoglobin Concent 34.3 g/dl Platelet Count 186 K/uL Mean Platelet Volume 10.0 fL Neutrophils (%) (Auto) 77.8 % Lymphocytes (%) (Auto) 13.9 % Monocytes (%) (Auto) 7.8 % Eosinophils (%) (Auto) 0.2 % Basophils (%) (Auto) 0.1 % Neutrophils # (Auto) 12.53 K/uL Lymphocytes # (Auto) 2.24 K/uL Monocytes # (Auto) 1.26 K/uL Eosinophils # (Auto) 0.04 K/uL Basophils # (Auto) 0.02 K/uL RDW Standard Deviation 44.7 fL RDW Coefficient of Variation 13.4 % Immature Granulocyte % (Auto) 0.2 % Immature Granulocyte # (Auto) 0.03 K/uL
--- NOTE | 2017-11-06 10:36 | Clinical Documentation Query ---
Dr. TURNER,QI : CLINICAL DOCUMENTATION QUERY Clinical documentation includes a diagnosis of: Acute Hypoxic Respiratory Failure. Due to stringent requirements by our coding department, multiple clinical indicators associated with this diagnosis must be present in order for this to be coded/captured within the medical record. If appropriate, please document 2 or more of the following clinical indicators in daily progress notes and the discharge summary. If you feel the diagnosis of acute respiratory failure was made in error, or do not agree with it, simply discontinue documentation thereof. Documentation includes a single SpO2 less than 90% on Room air. Respirations not greater than 20 since arrival. ED physician notes "well appearing" and "normal chest wall mechanics". H&P notes patient denies "increasing SOB". Acute Respiratory Failure indicators include: o Respirations >28 o Air hunger o Use of accessory muscles of respiration o Inability to speak in full sentences o Cyanosis o Pulse ox <90% RA or <95% on O2 opH <7.35 or >7.45 o pO2 < 60 mm Hg (or 10mm below COPD patient's baseline) o pCO2 >50mm Hg (or 10mm above COPD patient's baseline) o mechanical ventilation o Increased work of breathing o Tachypnea Thank You, Skyler Jara, RN [phone]
--- NOTE | 2017-11-06 10:42 | Consultant Recommendations ---
Agricultural Appraiser Recommendations Date of Service Nov 06, 2017. Agricultural Appraiser Recommendations Follow up with Dr. Coughlin Friday11/14/2017 at 9:45am
[2017-11-06] MEDS ORDERED: PRED10TA PO (11:27)
[2017-11-06] MEDS ORDERED: BENZ100C7 PO (11:27)
[2017-11-06] MEDS ORDERED: AMOX875T PO (11:27)
[2017-11-06] MEDS ORDERED: LSN5 PO (11:27)
[2017-11-06] MEDS ORDERED: VNTHFA/IN INH (11:28)
--- NOTE | 2017-11-06 11:34 | Discharge Instructions ---
Discharge Instructions Date of Service Nov 06, 2017. Admission Reason for Admission: Respiratory Failure, Acute Discharge Discharge Diagnosis / Problem: Pneumonia, Hemoptysis, Respiratory failure Discharge Goals Goal(s): Therapeutic intervention Activity Recommendations Activity Limitations: resume your previous activity . Instructions / Follow-Up Instructions / Follow-Up Please see Dr. Stapleton on November 11 at 9:45AM for hospital follow up Current Hospital Diet Patient's current hospital diet: AHA Diet (Heart Healthy) Discharge Diet Recommended Diet: AHA Diet (Heart Healthy) Pending Studies Studies pending at discharge: no Medical Emergencies . Who to Call and When: Medical Emergencies: If at any time you feel your situation is an emergency, please call 911 immediately. . Non-Emergent Contact Non-Emergency issues call your: Primary Care Provider, Hospital Doctor . . "Provider Documentation" section prepared by Jennifer Hartman. . Hide Washer Recommendations Hide Washer Recommendations: Follow up with Dr. Coughlin Friday11/14/2017 at 9:45am VTE Core Measure Inpt VTE Proph given/why not?: SCD's
--- NOTE | 2017-11-06 14:03 | Discharge Summary ---
Discharge Summary Date of Service Nov 06, 2017. Discharge Summary Admission Date: Nov 04, 2017 at 23:17 Discharge Date: Nov 06, 2017 Discharge Disposition: Home Principal Diagnosis: Probable COPD exacerbation, Pneumonia, HTN Pending Studies/Follow-Up: Pulm follow up, Lung nodule program Medication Reconciliation New Medications: Albuterol Hfa (Ventolin Hfa) 200 Puffs/18422 Mcg Aers 2 PUFFS INH Q6H PRN for SOB/Wheezing, #1 INHALER Amoxicillin & Pot Clavulanate (Augmentin 875-125 mg) 1 Tab Tab 1 TAB PO BID for 5 Days, #10 TAB Prednisone Tab (Prednisone) 10 Mg Tab 10 MG PO UD, #22 TAB 40mg (4 tabs) x1 day, 30mg (3 tabs) x3days, 20mg (2 tabs) x3days, 10mg (1 tab)x 3days Benzonatate (Benzonatate) 100 Mg Cap 100 MG PO Q8H PRN for Cough, #30 CAP Lisinopril (Lisinopril) 5 Mg Tab 5 MG PO QAM, #30 TAB Admission Information HPI (per Admitting provider): CHIEF COMPLAINT: Hemoptysis. HISTORY OF PRESENT ILLNESS: History obtained from the patient and son. Medical history significant for hypertension not on meds, ongoing tobacco abuse. Patient moved to [facility] from [place] in 2007 when his . Last night he noted coughing symptoms and hemoptysis, later noted of self-limited epistaxis upon sneezing. Denies headache. No chest pain, increasing shortness of breath. Denies aspiration. No fever, no chills, no sick contacts. No hematemesis, no black/bloody stools, no abdominal pain. No previous episodes. No unusual weight loss. Brought to Emergency Room. Patient received Zosyn for pneumonia. MEDICAL HISTORY: As above. No hx of pneumococcal vaccination. Last seasonal flu vaccine was in the 1970s . SURGERIES: Hernia surgery, tibia surgery. HOME MEDICATIONS: None. ALLERGIES: No known drug allergies. FAMILY HISTORY: There is a family history of hypertension, diabetes and lymphoma. PERSONAL AND SOCIAL HISTORY: 50 pack years. Denies chronic alcoholic beverage intake. Retired from road construction. REVIEW OF SYSTEMS: As per HPI. All 10 systems reviewed. All other ROS negative. PHYSICAL EXAMINATION: VITAL SIGNS: Blood pressure was noted to be 202/105, later 172/103, pulse rate 99, RR 26, temperature 36.7, sats 86 on room air. GENERAL: Noted to be in minimal resp distress, anxious, tremulous. SKIN: Warm. Normal color. HEENT: [place] palpebral conjunctivae. No ptosis. Dry mucosa. Nasal cannula in place. NECK: Supple. No tenderness. CHEST: Decreased breath sounds. No tenderness. HEART: Regular rate and rhythm. No murmur. ABDOMEN: Soft, nontender. EXTREMITIES: No edema, no tenderness. No gross deformity. NEUROLOGIC: Coherent. No gross focality. Hospital Course Acute hypoxemic respiratory failure: -secondary to community-acquired pneumonia vs aspiration pneumonia -possible COPD Exacerbation (no previous diagnosis, emphysematous lungs on CT) -no sepsis -on ampicillin-sulbactam -on PO prednisone, to taper as outpatient -continued on nebs -Pulm consulted, appreciate recs Hypertensive urgency: -not on meds at home but reports having high BP in the past -continue on lisinopril started on admission Hypokalemia: -replete and recheck Ongoing tobacco abuse: -smoking cessation encouraged Lung nodule: -seen on CTA chest -Pulm consulted, will refer to [facility] lung nodule program for surveillance PHYSICAL EXAM ON DAY OF DISCHARGE: GENERAL: Patient is in no acute distress. HEENT: No acute trauma, normocephalic, mucous membranes moist, no nasal congestion, no scleral icterus. NECK: No stridor, trachea is midline. LUNGS: Diminished bilaterally, no wheeze, no rhonchi, breath sounds equal. HEART: Without murmurs gallops or rubs, regular rate and rhythm. ABDOMEN: Soft, nontender, bowel sounds positive EXTREMITIES: No cyanosis or edema, full range of motion of all the joints without pain or difficulty, no signs for acute trauma. NEUROLOGIC: Oriented x 3, no acute motor or sensory deficits, no focal weakness. SKIN: No rash, no jaundice, no diaphoresis. Total time spent on discharge = 37 This includes examination of the patient, discharge planning, medication reconciliation, and communication with other providers. Discharge Instructions See patient instructions
== END 2017-11-06 15:08 | disposition home or self-care (01) | DRG 190 ==
LOC: C.EDB 19:33 → C.MED 23:17 → ENRESERV 23:50
PROVIDERS: ADMIT Internal Medicine; ATTEND Internal Medicine
DX: J44.0 Chronic obstructive pulmonary disease with (acute) lower respiratory infection (principal); J18.9 Pneumonia, unspecified organism; J96.01 Acute respiratory failure with hypoxia; J44.1 Chronic obstructive pulmonary disease with (acute) exacerbation; E87.6 Hypokalemia; I10 Essential (primary) hypertension; I44.0 Atrioventricular block, first degree; I16.0 Hypertensive urgency; R91.1 Solitary pulmonary nodule; Z87.891 Personal history of nicotine dependence

== ENCOUNTER → 2017-11-21 | Outpatient (CLI) | payer OTHER ==
[~2017-11-21] MED LIST: BENZ100C7 PO; LSN5 PO; PRED10TA PO; VNTHFA/IN INH
--- NOTE | 2017-11-21 09:23 | DIAGNOSTIC IMAGING REPORT ---
CHEST 2 VIEWS ROUTINE CLINICAL HISTORY: R04.2 PvrbcndpkpD89.1 Lung exxcqjE70.9 [id number] COMPARISON STUDY: 11/04/2017 FINDINGS: The chest has an emphysematous configuration. The heart is normal in size. There is no failure. There is blunting of the right lateral costophrenic angle consistent with a small effusion. Increased markings at the lung bases are likely atelectatic.[ IMPRESSION: 1. Emphysema 2. Small right pleural effusion 3. Mild basilar atelectasis 4. No evidence of lobar consolidation Electronically signed by: Tolu Espitia M.D. 11/21/2017 9:22 AM Dictated Date/Time: 11/21/2017 9:21 AM
== END | disposition home or self-care (01) ==
LOC: C.RAD1850 09:10
PROVIDERS: ATTEND Physician Assistant
DX: J18.9 Pneumonia, unspecified organism (principal); R04.2 Hemoptysis; R91.1 Solitary pulmonary nodule; J43.9 Emphysema, unspecified

== ENCOUNTER → 2017-12-10 | Outpatient (CLI) | payer OTHER ==
--- NOTE | 2017-12-10 10:11 | DIAGNOSTIC IMAGING REPORT ---
(CHEST) THORAX WITHOUT CLINICAL HISTORY: 72 years-old Male presenting with R04.2 DsohmpkxarT20.1 Lung nodulePt. scheduled for 12/10/17 at 10. TECHNIQUE: Multidetector CT imaging of the chest was performed without the use of intravenous contrast. IV contrast: None. A dose lowering technique was used consistent with the principles of ALARA (as low as reasonably achievable). COMPARISON: 11/04/2017. CT DOSE (mGy.cm): The estimated cumulative dose is 576.61 mGycm. FINDINGS: Manager Office topogram: Hyperinflation. On soft tissue windows, normal thyroid and thoracic inlet. No axillary, supraclavicular, or mediastinal lymphadenopathy. Evaluation of the katelynn limited without intravenous contrast. Atherosclerosis of the aorta. Normal heart size. Coronary artery calcification. Small right pleural effusion, new from prior. Cholelithiasis. On lung windows, persistent spiculated 8 mm solid nodule in the right middle lobe (series 4 image 199). Punctate solid nodule more laterally in the right middle lobe (series 4 image 210). Mild apical predominant emphysema. Interval resolution of previously noted patchy bilateral pulmonary opacities. Minimal subpleural nodularity and reticulation likely postinfectious/postinflammatory. Bandlike opacity in the right lower lobe likely atelectasis. Minimal atelectasis in the lingula. Minimal bronchial wall thickening. Airways patent. On bone windows, degenerative changes of the spine. IMPRESSION: 1. Persistent solid spiculated 8 mm nodule in the right middle lobe, which is highly suspicious for primary bronchogenic neoplasm. 2. Mild emphysema. 3. Resolution of patchy bilateral pulmonary opacities, which were compatible with pneumonia. 4. New right pleural effusion, which may be reactive to the prior infection/inflammation. The report will be called/faxed according to standard departmental protocol. Electronically signed by: Jonathan Ga M.D. 12/10/2017 10:10 AM Dictated Date/Time: 12/10/2017 10:04 AM
== END | disposition home or self-care (01) ==
LOC: C.CTS 09:37
PROVIDERS: ATTEND Physician Assistant
DX: R04.2 Hemoptysis (principal); R91.1 Solitary pulmonary nodule

== ENCOUNTER → 2017-12-17 | Outpatient (CLI) | payer OTHER ==
--- NOTE | 2017-12-17 11:29 | DIAGNOSTIC IMAGING REPORT ---
PET/CT SKULL-THIGH CLINICAL HISTORY: SINGLE PULMONARY NODULE COMPARISON STUDY: Chest CT scan dated 12/02/2017 FINDINGS: The patient was injected with 14.2 mCi of F 18 labeled FDG. Findings standard induction phase, PET/CT scanning was performed from the skull base to the upper thigh region. Within the neck, there is intensely FDG avid 4 cm mass abutting or arising from the inferior medial aspect of the left parotid gland. This has an SUV maximum of 10.7. There is central diminished activity raises the possibility of central necrosis. Biopsy is recommended. There is slight asymmetric vocal cord activity. The right vocal cord demonstrates an SUV maximum of 5.2 and appears slightly medially displaced as compared to the left. Direct visualization should be considered in follow-up. Activity within neck is otherwise physiologic. Within the thorax, there is no pathologic radha activity. The patient's 8mm spiculated right middle lobe pulmonary nodule demonstrates faint FDG activity with SUV maximum of 1.3. Given its small size, this low degree of activity is considered positive. There is a small right pleural effusion. There is very faint increased FDG activity within the pleural fluid. Within the abdomen, there is no pathologic adrenal gland or hepatic activity. Incidental note is made of cholelithiasis. There is no pathologic radha activity within the abdomen or pelvis. There is physiologic urinary tract and bowel activity. There are few scattered sclerotic skeletal lesions. None of these are FDG avid. IMPRESSION: 1. 8 mm spiculated right middle lobe pulmonary nodule which demonstrate faint FDG activity with SUV maximum of 1.3. Given the nodule's small size, this low degree of activity is considered positive. 2. Small right pleural effusion which is faintly FDG avid 3. 4 cm intensely FDG avid mass arising from or abutting the inferior medial aspect of the left parotid gland. Biopsy is recommended 4. Slight increased FDG activity within the right vocal cord with an SUV maximum of 5.2. This appears medially displaced as compared to the left. Direct visualization is recommended, as this pattern of activity can be seen in left vocal cord paralysis. Electronically signed by: Tolu Espitia M.D. 12/17/2017 11:28 AM Dictated Date/Time: 12/17/2017 11:15 AM
== END | disposition home or self-care (01) ==
LOC: C.PET 08:39
PROVIDERS: ATTEND Physician Assistant
DX: R91.1 Solitary pulmonary nodule (principal); J90 Pleural effusion, not elsewhere classified

== ENCOUNTER → 2017-12-17 | Outpatient (CLI) | payer OTHER ==
[~2017-12-17] MED LIST changes: +OPTIRAY 320 IV PRN
--- NOTE | 2017-12-17 11:41 | DIAGNOSTIC IMAGING REPORT ---
CT ABD/PELVIS IV CONTRAST ONLY CLINICAL HISTORY: Elevated PSA. Solitary pulmonary nodule. COMPARISON STUDY: None. TECHNIQUE: Following the IV administration of 94 mL of Optiray-320, CT scan of the abdomen and pelvis was performed from the lung bases to the proximal femurs. Images are reviewed in the axial, sagittal, and coronal planes. IV contrast was administered without complication. A dose lowering technique was utilized adhering to the principles of ALARA. CT DOSE: 893.37 mGycm FINDINGS: Lower chest: There are basilar atelectatic changes. There is a very small right pleural effusion. Liver: The contrast-enhanced liver is normal in size, contour, and attenuation. There is no intrahepatic biliary ductal dilatation. The hepatic veins and portal veins are patent. Gallbladder: Cholelithiasis Spleen: Normal in size and attenuation. Pancreas: There is a 2 cm pancreatic tail mass. This is isodense with spleen and could represent splenic tissue. Adrenal glands: Unremarkable. Kidneys: There is an 8 mm left renal cyst. No solid renal masses are visualized. There is no hydronephrosis. Bowel: There are no transition zones indicate bowel obstruction. There is no acute diverticulitis. There is subtle nonspecific nodular infiltration of the perirectal fat. Peritoneum: There is no intraperitoneal free air or abdominal ascites. Vasculature: There is mild ectasia of the infrarenal abdominal aorta which measures 28 mm in maximal diameter. Adenopathy: Possible enlarged left perirectal lymph nodes Pelvic viscera: The prostate is prominent measuring 55 mm. Skeletal structures: There are a few scattered nonspecific subcentimeter sclerotic lesions. An L5 lytic focus is felt to be secondary to a Schmorl's node. IMPRESSION: 1. Very small right pleural effusion 2. Cholelithiasis 3. 2 cm pancreatic tail mass. This is isointense with spleen and could represent splenic tissue. If further evaluation is deemed clinically necessary, a contrast-enhanced MRI would be considered the test of choice in follow-up 4. Prominent prostate 5. Scattered nonspecific subcentimeter sclerotic skeletal lesions 6. Mild nodular infiltration of the perirectal fat. Possible small left-sided perirectal lymph nodes Electronically signed by: Tolu Espitia M.D. 12/17/2017 11:39 AM Dictated Date/Time: 12/17/2017 11:29 AM
== END | disposition home or self-care (01) ==
LOC: C.CTS 10:56
PROVIDERS: ATTEND Urology
DX: R97.20 Elevated prostate specific antigen [PSA] (principal); K80.20 Calculus of gallbladder without cholecystitis without obstruction; K86.9 Disease of pancreas, unspecified

== ENCOUNTER → 2017-12-30 | Outpatient (CLI) | payer OTHER ==
[~2017-12-30] MED LIST changes: -OPTIRAY 320 IV PRN
== END | disposition home or self-care (01) ==
LOC: C.PATH 08:15
PROVIDERS: ATTEND Otolaryngology
DX: C07 Malignant neoplasm of parotid gland (principal)

== ENCOUNTER → 2018-01-16 | Day surgery (SDC) | payer OTHER ==
[2018-01-07 09:04] VITALS: BMI 28.0
--- NOTE | 2018-01-07 09:38 | PAT Medication Instructions ---
Service Date Jan 07, 2018. Current Home Medication List Albuterol Hfa (Ventolin Hfa), 2 PUFFS INH Q6H PRN for SOB/Wheezing Budesonide/Formoterol Fumarate (Symbicort 80/4.5 Inhaler), 2 PUFFS INH BID Lisinopril (Zestril), 10 MG PO QAM Medication Instructions For Your Scheduled Surgery - Hold the following medications the morning of surgery: Lisinopril (Zestril), 10 MG PO QAM - Take the following medications the morning of surgery with a sip of water: Albuterol Hfa (Ventolin Hfa), 2 PUFFS INH Q6H PRN for SOB/Wheezing (if needed) Budesonide/Formoterol Fumarate (Symbicort 80/4.5 Inhaler), 2 PUFFS INH BID - Take the following medications as scheduled the night before surgery: Albuterol Hfa (Ventolin Hfa), 2 PUFFS INH Q6H PRN for SOB/Wheezing (if needed) Budesonide/Formoterol Fumarate (Symbicort 80/4.5 Inhaler), 2 PUFFS INH BID If you have any questions please call us at [phone] or [phone] or [phone]
[2018-01-07 11:28] LABS: BASO % 1.3 %; EOS % 5.7 %; EOS ABS # 0.45 K/uL (0-0.5); HEMATOCRIT 47.1 % (42-52); HEMOGLOBIN 16.3 g/dL (14.0-18.0); IG# 0.02 K/uL (0.00-0.02); LYMPH % 18.5 %; LYMPH ABS # 1.47 K/uL (1.2-3.4); MEAN CELL VOLUME 91.5 fL (80-100); MEAN CORPUSCULAR HEMOGLOBIN 31.7 pg (25-34); MEAN CORPUSCULAR HGB CONC 34.6 g/dl (32-36); MEAN PLATELET VOLUME 9.6 fL (7.4-10.4); MONO % 7.8 %; MONO ABS # 0.62 K/uL (0.11-0.59); NEUT % 66.4 %; NEUT ABS # 5.29 K/uL (1.4-6.5); PLATELET COUNT 209 K/uL (130-400); RED CELL DISTRIBUTION WIDTH CV 13.2 % (11.5-14.5); RED CELL DISTRIBUTION WIDTH SD 43.7 fL (36.4-46.3); WHITE BLOOD COUNT 7.95 K/uL (4.8-10.8)
[2018-01-07 11:34] LABS: CALCIUM 9.7 mg/dl (8.5-10.1); CREATININE 0.96 mg/dl (0.60-1.40)
--- NOTE | 2018-01-15 15:07 | History and Physical ---
History & Physical Date Jan 15, 2018. Chief Complaint Neck mass History of Present Illness The patient is a 72 year old male with complaints of enlarging left parotid mass which has been enlarging, needle biopsy showed very low cellularity, suspicion for low-grade mucoepidermoid carcinoma, admitted for parotidectomy with frozen section and possible neck dissection. Past Medical/Surgical History Medical Problems: (1) No Known Active Medical Problems (2) Respiratory failure, acute Additional History Hepatic Disease: No Kidney Disease: No Hypertension: No Heart Disease: No Bleeding Tendencies: No Infectious Diseases: No Allergies Coded Allergies: No Known Allergies (Unverified , 01/07/18) Home Medications Scheduled Budesonide/Formoterol Fumarate (Symbicort 80/4.5 Inhaler), 2 PUFFS INH BID Lisinopril (Zestril), 10 MG PO QAM Scheduled PRN Albuterol Hfa (Ventolin Hfa), 2 PUFFS INH Q6H PRN for SOB/Wheezing Physical Examination Skin: warm/dry, no rash Eyes: normal inspection, EOMI, sclerae normal ENT: normal ENT inspection, pharynx normal Head: normocephalic, atraumatic Neck: + pertinent finding (5 cm left tail of parotid mass) Respiratory/Chest: lungs clear, normal breath sounds, no respiratory distress Cardiovascular: regular rate, rhythm, no edema, no murmur Abdomen / GI: normal bowel sounds, non tender Back: normal inspection Extremities: normal inspection, normal range of motion Diagnosis Left parotid mass Plan of Treatment Left parotidectomy with frozen section and possible neck dissection
[~2018-01-16] VITALS: Ht 185.4 cm; Wt 98.3 kg
[~2018-01-16] MED LIST changes: +ATROPINE SULFATE 0.1 MG/ML 5ML SYR IV PRN; +BACITRACIN OINT 15 GM TUBE ONE; -BENZ100C7 PO; +CEFAZOLIN 2000MG IV PUSH 15 ML IV SCH; +DEXAMETHASONE SOD INJ 4 MG/ML VIAL ONE; +EpHEDrine SULFATE 50MG/5ML SYR ONE; +EpHEDrine SULFATE INJ 50 MG/ML AMP IV PRN; +FENTANYL CITRATE INJ 50 MCG/1 ML 2 ML VIAL ONE; +FLUMAZENIL 0.1 MG/1 ML 10 ML VIAL IV PRN; +HYDR-5688 PO; +HYDROCODONE/ACETAMIN 5/325MG TAB PO PRN; +HYDROmorphone INJ 1 MG/ML SYR IV PRN; +LABETALOL HCL IV 5 MG/ML 20ML IV PRN; +LACTATED RINGER'S 1000ML 1,000 ML IV SCH; +LIDO 2%/EPINEPHRINE 1:100000 20 ML VIAL INFIL ONE; +LIDOCAINE HCL 2% 2 ML VIAL (20MG/ML) ONE; +LIDOCAINE HCL 2% JELLY 30 ML TUBE EXT ONE; +LISI-461 PO; -LSN5 PO; +MIDAZOLAM HCL 1 MG/ML 2ML VIAL ONE; +NALOXONE HCL 0.4 MG/1 ML VIAL/CARP IV PRN; +ONDANSETRON INJ 2 MG/ML 2 ML VIAL IV PRN; +ONDANSETRON INJ 2 MG/ML 2 ML VIAL ONE; +PHENYLEPHRINE 100MCG/ML 5ML SYR ONE; -PRED10TA PO; +PROPOFOL IV EMULSION 10 MG/ML 20 ML VIAL IV ONE; +ROCURONIUM BROMIDE 10 MG/ML 5 ML VIAL IV ONE; +SODIUM CHLORIDE 0.9% 1000ML 1,000 ML IV SCH; +SUCCINYLCHOLINE CHLORIDE 20 MG/ML 10 ML VIAL IV ONE; +SYMIN/8045 INH
[2018-01-16 09:24] VITALS: BP 155/88; PULSE 76; TEMP 36.7; O2SAT 97; Ht 185.4 cm; Wt 98.3 kg
--- NOTE | 2018-01-16 10:29 | History & Physical Bridge Note ---
H&P Re-Evaluation Bridge Note: I have examined the patient, reviewed the History & Physical and in the interval since the performance of the History & Physical I have noted the following changes of clinical significance: No changes noted
--- NOTE | 2018-01-16 13:21 | [facility] Post Operative Brief Note ---
Immediate Operative Summary Operative Date Jan 16, 2018. Pre-Operative Diagnosis Left Neck Mass Post-Operative Diagnosis Warthin's Tumor, Left Neck Procedure(s) Performed Left Superficial Parotidectomy Surgeon Dr. Chiquita Quintero Child Care Giver Surgeon(s) none Estimated Blood Loss 75ml Findings Consistent with Post-Op Diagnosis Specimens FROZEN: #1) Left Neck Cyst Drains yancy Anesthesia Type General Complication(s) none Disposition Accompanied Pt To Recover: yes Disposition: Recovery Room / PACU
--- NOTE | 2018-01-16 13:30 | Discharge Instructions ---
Discharge Instructions Date of Service Jan 16, 2018. Admission Reason for Admission: Left Parotid Mass Discharge Discharge Diagnosis / Problem: warthin's tumor Discharge Goals Goal(s): Therapeutic intervention Activity Recommendations Activity Limitations: per Instructions/Follow-up section . Instructions / Follow-Up Instructions / Follow-Up ACTIVITY: Most patients are able to return to a full-time work schedule in 1 week; however this may vary according to your job. It may take longer to return to heavy physical or other demanding work, or shorter if you are feeling well. Do NOT drive a car until you are able to turn the neck side to side, which may take 1-[address] you are taking pain medicines. DIET: You may have temporary throat discomfort or difficulty swallowing. This is due to the surgery around your larynx (voice box) and esophagus (swallowing tube). These symptoms will gradually improve over the course of several weeks. Drink and eat foods that can be swallowed easily, e.g. juice, soup, gelatin, applesauce, scrambled eggs or mashed potatoes. You may be able to return to your usual diet in a couple of days. INCISION CARE: You may shower 24 hours after surgery but please do not swim or soak in a tub for at least 2 weeks. After you are done showering, just pat your incision dry. If it is draining clear fluid, you can cover it with a dry dressing (such as gauze). Do NOT scrub with soap or washcloth for the first 10 days. Mild swelling at the incision site will go away in 4-6 weeks. The pink line will slowly fade to white during the next 6-12 months. Use a sunscreen (SPF#30 or higher) or wear a scarf for protection if in the sun for the first 6 months to a year as the sun can darken your scar. You may begin to use a hypoallergenic moisturizing cream (no vitamin E, Mederma , or other scar creams) along the incision after 2 weeks. COMMON PROBLEMS: Numbness of the skin under the chin or above the incision is normal and should go away in a few weeks. You may feel a lump or pressure in your throat sensation when swallowing for a few days. Your incision may feel itchy while it heals. Avoid rubbing or scratching if possible. You may feel neck stiffness, tightness or a pulling feeling. Some people prefer to sleep with an extra pillow for the first few days after the surgery, this helps keep swelling around your incision to a minimum. Your voice may be hoarse or weak. Pitch or tone may change. You may have difficulty singing. This usually goes back to normal over 6 weeks to 6 months. After surgery, you may notice a change in your mood, emotional ups and downs, depression, irritability or fatigue and weakness. These changes will get better as time passes. You do not need to be at bed rest, being active is normally well tolerated within reason. CALL YOUR DOCTOR IF: For any non-urgent questions, call Dr. Can office [phone] or the nursing unit where you were a patient. Call Dr. Quintero [phone] or go to the Emergency Room if you have fever ( temperature greater than 100.5), chills, lightheadedness, shortness of breath, difficulty breathing, nausea, vomiting, numbness or tingling in your fingers, hands, or mouth, muscle spasms, or if you notice signs of wound infection ( redness, tenderness, or drainage from the incision). Please also call or go to the Emergency Room if you have any other urgent concerns. FOLLOW UP VISIT: Follow-up visit with Dr. Quintero. Please call to schedule if not already scheduled. Current Hospital Diet Patient's current hospital diet: Discharge Diet Recommended Diet: Regular Diet Procedures Procedures Performed: Left Superficial Parotidectomy Pending Studies Studies pending at discharge: no Medical Emergencies . Who to Call and When: Medical Emergencies: If at any time you feel your situation is an emergency, please call [phone] immediately. . Non-Emergent Contact Non-Emergency issues call your: Primary Care Provider . "Provider Documentation" section prepared by Chiquita Quintero. . [place] Drug Monitoring Program Search Results: no issues identified
--- NOTE | 2018-01-16 14:09 | OPERATIVE REPORT ---
DATE OF OPERATION: 01/16/2018 PREOPERATIVE DIAGNOSIS: Left parotid mass. POSTOPERATIVE DIAGNOSIS: Warthin tumor. PROCEDURE: Left superficial parotidectomy. SURGEON: Dr. Quintero. ANESTHESIA: General endotracheal. COMPLICATIONS: None. BLOOD LOSS: 75 mL. DRAINS: Franko. HISTORY OF PRESENT ILLNESS: This 72-year-old gentleman presented with a progressively enlarging left parotid mass. Needle biopsy was not diagnostic. DESCRIPTION OF PROCEDURE: The patient was taken to the operating room and placed in supine position. General endotracheal anesthesia was induced. He was prepped with ChloraPrep and draped in the usual sterile manner. The incision was a routine left parotid incision following the preauricular crease around the lobule of the ear over the mastoid and then down the neck, 2 fingerbreadths below the angle of the mandible. Incision was made using a 15 blade, carried down through the skin and subcutaneous layer. The parotid flap anteriorly was lifted using the 15 blade, controlling bleeders with the bipolar cautery and also the Bovie. The parotid was from the tragal cartilage and also from the mastoid process and the sternocleidomastoid muscle, finding the posterior facial vein and clamping and dividing the posterior facial vein. Greater auricular nerve was found and preserved anteriorly; however, posterior branches were transected. The dissection was continued medially following the tragal pointer 2 cm down to the facial nerve which was found and preserved. This was followed out anteriorly to the pes anserinus. Because the tumor was low and inferior only the tail of the parotid was from the inferior branch and the tail of the parotid was removed along with the tumor. Blunt and sharp dissection was then performed all around the tail of the parotid and the mass, the sternocleidomastoid from the mass and then the posterior facial vein and the anterior branch of the greater auricular nerve from the mass. In this manner, the entire mass was dissected free from the surrounding tissue along with the tail of the parotid and sent for frozen section which showed Warthin tumor. At this point, the wound was irrigated with copious amounts of saline and then the bleeders were controlled using 2-0 silk ties on the posterior facial vein and also using the bipolar cautery. The incision was closed with interrupted 4-0 Vicryl sutures in the platysma layer and also on the subcutaneous layer and then a continuous 4-0 Monocryl suture was used to close the neck and then a continuous 4-0 Monocryl suture was used to close the preauricular incision in a subcuticular manner. The [place] drain exited the lower neck and was sewn in place with a 4-0 Monocryl suture. The patient tolerated the procedure well. A light pressure dressing was placed and he was taken to recovery area in satisfactory condition with the facial nerve intact. I attest to the content of the Intraoperative Record and any orders documented therein. Any exception s are noted below.
[2018-01-16 14:17] VITALS: BP 149/86; PULSE 81; TEMP 36.6; O2SAT 94
--- NOTE | 2018-01-16 14:37 | Anesthesiology Progress Note ---
Anesthesia Post Op Note Date & Time Jan 16, 2018 at 14:37 Vital Signs Pain Intensity: 4.0 Vital Signs Past 12 Hours Date Time Temp Pulse Resp B/P (MAP) Pulse Ox O2 Delivery O2 Flow Rate FiO2 01/16/18 14:17 36.6 81 18 149/86 94 Room Air 2 01/16/18 14:06 144/87 01/16/18 14:04 74 12 01/16/18 14:04 73 12 92 01/16/18 14:01 140/85 01/16/18 13:59 75 12 94 01/16/18 13:59 75 12 01/16/18 13:58 73 9 01/16/18 13:58 73 9 92 01/16/18 13:56 149/80 01/16/18 13:53 79 21 01/16/18 13:53 36.4 76 16 149/80 (107) 95 Nasal Cannula 2 01/16/18 13:53 80 21 91 01/16/18 13:51 152/86 01/16/18 13:48 76 18 01/16/18 13:48 77 18 95 01/16/18 13:47 79 13 159/84 95 01/16/18 13:47 79 13 01/16/18 13:42 78 13 01/16/18 13:42 76 13 97 01/16/18 13:41 144/90 01/16/18 13:41 144/90 01/16/18 13:40 77 10 01/16/18 13:40 77 10 97 01/16/18 13:40 77 10 01/16/18 13:40 77 10 97 01/16/18 13:36 152/78 01/16/18 13:36 152/78 01/16/18 13:35 79 14 01/16/18 13:35 80 14 97 01/16/18 13:35 79 14 01/16/18 13:35 80 14 97 01/16/18 13:31 157/90 01/16/18 13:31 157/90 01/16/18 13:30 81 16 96 01/16/18 13:30 81 16 01/16/18 13:30 81 16 01/16/18 13:30 81 16 96 01/16/18 13:25 77 5 01/16/18 13:25 77 5 4/6/18 13:25 36.7 76 12 169/90 (123) 97 Oxymask 10 01/16/18 13:25 76 5 169/90 97 01/16/18 13:25 76 5 169/90 97 01/16/18 09:24 36.7 76 18 155/88 97 Room Air Notes Mental Status: alert / awake / arousable, participated in evaluation Pt Amnestic to Procedure: Yes Nausea / Vomiting: adequately controlled Pain: adequately controlled Airway Patency, RR, SpO2: stable & adequate BP & HR: stable & adequate Hydration State: stable & adequate Anesthetic Complications: no major complications apparent
[2018-01-16 14:47] VITALS: BP 150/79; PULSE 83; TEMP 36.6; O2SAT 94
== END | disposition home or self-care (01) ==
LOC: C.ACU 08:27
PROVIDERS: ATTEND Otolaryngology
DX: D11.9 Benign neoplasm of major salivary gland, unspecified (principal); I10 Essential (primary) hypertension; J44.1 Chronic obstructive pulmonary disease with (acute) exacerbation; Z87.891 Personal history of nicotine dependence; Z79.899 Other long term (current) drug therapy; E66.9 Obesity, unspecified; Z68.28 Body mass index [BMI] 28.0-28.9, adult; Z80.42 Family history of malignant neoplasm of prostate

== ENCOUNTER → 2018-05-05 | Outpatient (CLI) | payer OTHER ==
[~2018-05-05] MED LIST changes: -ATROPINE SULFATE 0.1 MG/ML 5ML SYR IV PRN; -BACITRACIN OINT 15 GM TUBE ONE; +CALC-51 PO; -CEFAZOLIN 2000MG IV PUSH 15 ML IV SCH; +CHOL1000 PO; -DEXAMETHASONE SOD INJ 4 MG/ML VIAL ONE; -EpHEDrine SULFATE 50MG/5ML SYR ONE; -EpHEDrine SULFATE INJ 50 MG/ML AMP IV PRN; -FENTANYL CITRATE INJ 50 MCG/1 ML 2 ML VIAL ONE; -FLUMAZENIL 0.1 MG/1 ML 10 ML VIAL IV PRN; -HYDR-5688 PO; -HYDROCODONE/ACETAMIN 5/325MG TAB PO PRN; -HYDROmorphone INJ 1 MG/ML SYR IV PRN; -LABETALOL HCL IV 5 MG/ML 20ML IV PRN; -LACTATED RINGER'S 1000ML 1,000 ML IV SCH; +LEUPROLIDE ACETATE 22.5 MG KIT IM SCH; -LIDO 2%/EPINEPHRINE 1:100000 20 ML VIAL INFIL ONE; -LIDOCAINE HCL 2% 2 ML VIAL (20MG/ML) ONE; -LIDOCAINE HCL 2% JELLY 30 ML TUBE EXT ONE; -MIDAZOLAM HCL 1 MG/ML 2ML VIAL ONE; -NALOXONE HCL 0.4 MG/1 ML VIAL/CARP IV PRN; -ONDANSETRON INJ 2 MG/ML 2 ML VIAL IV PRN; -ONDANSETRON INJ 2 MG/ML 2 ML VIAL ONE; -PHENYLEPHRINE 100MCG/ML 5ML SYR ONE; -PROPOFOL IV EMULSION 10 MG/ML 20 ML VIAL IV ONE; -ROCURONIUM BROMIDE 10 MG/ML 5 ML VIAL IV ONE; -SODIUM CHLORIDE 0.9% 1000ML 1,000 ML IV SCH; -SUCCINYLCHOLINE CHLORIDE 20 MG/ML 10 ML VIAL IV ONE
--- NOTE | 2018-06-08 10:47 | CODING QUERY NO DIAGNOSIS ---
: 1945 TREATMENT RENDERED WITHOUT A DIAGNOSIS To promote full compliance with coding requirements relating to patient care, physician participation is requested in all cases of education managers uncertainty. Please assist us with providing a diagnosis/symptom for the test(s) below: A diagnosis/symptom was not documented on your Order. A valid diagnosis/symptom is required to bill all insurances. Please remember that we are unable to code a diagnosis of rule out, probable, possible, questionable, or suspected. Tests that require a diagnosis: DOS: 05/05/2018 Rad therapy-Chemo inject DIAGNOSIS: Provider Signature: Date: Thank you Charla Rain [facility] Health Information Management Once completed, please kindly fax back to [phone] For questions please call [phone]
== END | disposition home or self-care (01) ==
LOC: C.ONC 04-30 08:17
PROVIDERS: ATTEND Physician Assistant Medical
DX: Z51.0 Encounter for antineoplastic radiation therapy (principal); C61 Malignant neoplasm of prostate

== ENCOUNTER 2020-02-02 17:48 | Inpatient (IN) ==
--- NOTE | 2020-02-02 18:14 | Emergency Department Note ---
History of Present Illness General Chief complaint: Syncope Stated complaint: SYNCOPE, FALL, WEAKNESS, DIZZINESS, SOB Time Seen by Provider: 02/02/20 17:51 Source: patient Mode of arrival: EMS Limitations: no limitations History of Present Illness Provider complaint: Syncope, exertional dyspnea, weakness Onset (ago): week(s) 1 Location: head Radiation: non-radiation Severity: moderate Pain Consistency: + constant Current Pain Intensity: 2 Quality: + aching Relieved By: + none Exacerbated By: + other (Exertion) Associated symptoms: + shortness of breath, + syncope and + weakness Treatments prior to arrival: none This is a 74-year-old male who presents to the ED with a chief complaint of a syncopal episode. The patient states that about 1 week ago he developed shortness of breath with exertion. He states that he has been feeling intermittently weak and dizzy. The patient states that if he walks more than 10 feet he develops shortness of breath. Walking up to 10 feet causes him to feel lightheaded. He states that his symptoms improve in about 10 minutes after he rests. The patient states that today he felt lightheaded and sat down on the toilet. He had a brief episode of syncope and fell forward into the wall striking his head causing an abrasion. He states that he could not get up off the floor and therefore called EMS. He did have an episode of fecal inco ntinence at the time of the syncope. The patient did suffer some abrasions of his knees attempting to get off of the floor. He states that he could not get off the floor because he was too weak. The patient reports a history of right partial pneumonectomy related to lung cancer. He was transported here by EMS. EMS reported 88% room air saturations. The patient does not use home oxygen. Here he was noted to be 88 to 90% on room air. He denies any fevers or recent upper respiratory illnesses. Denies any black tarry stools or abdominal pains. Has not had nausea or vomiting. The patient states that he was on the floor for about 20 minutes. Home Medications Home Medications Medication Instructions Recorded Confirmed Type fluticasone 100 mcg-salmeterol 50 1 puffs INH Q12H #3 inhaler 09/07/19 02/02/20 Rx mcg/dose blistr powdr for inhalation lisinopril 10 mg PO DAILY 10/05/19 02/02/20 History budesonide-formoterol [Symbicort] 2 puff INHALATION Q12H 02/02/20 02/02/20 History Allergies Allergy/AdvReac Type Severity Reaction Status Date / Time No Known Allergies Allergy Verified 02/02/20 18:50 Past Med/Surg History Medical History Adenocarcinoma of lung (Acute) Chronic airflow obstruction (Acute) Lung nodule (Acute) Mass of lateral neck (Acute) Parotid mass (Acute) SOB (shortness of breath) (Inactive) Surgical History No pertinent past surgical history Family History Other Family history non-contributory Social History Preferred Language: Turkmen Beliefs That Will Affect Care: None Feels Safe at Home: Yes Smoking Status: Former smoker Cigarettes Per Day: 20 ; Review of Systems A total of 10 systems reviewed and were otherwise negative Physical Exam Vital Signs Vital Signs - 24 hr 02/02/20 17:50 02/02/20 18:00 02/02/20 18:17 Temperature 36.6 C Temperature Source Oral Pulse Rate 96 H 93 H Pulse Rate from SpO2 Sensor 93 H Pulse Rhythm Regular Respiratory Rate 17 21 Respiratory Effort / Characteristics Spontaneous Respiratory Pattern Regular Blood Pressure 121/81 104/72 Blood Pressure Mean 94 81 Pulse Oximetry 89 L 95 94 Oxygen Delivery Method Room Air Nasal Cannula Nasal Cannula Oxygen Flow Rate 2 2 Sepsis Recent Fever Within 48 Hours No Sepsis New/Unexplained Change in Mental Status No Sepsis Action Taken by Nursing No Action Required 02/02/20 18:30 02/02/20 19:00 02/02/20 19:30 Temperature Temperature Source Pulse Rate 90 95 H 93 H Pulse Rate from SpO2 Sensor 89 93 H 93 H Pulse Rhythm Respiratory Rate 20 24 20 Respiratory Effort / Characteristics Respiratory Pattern Blood Pressure 103/67 123/62 116/80 Blood Pressure Mean 81 68 93 Pulse Oximetry 98 98 100 Oxygen Delivery Method Nasal Cannula Nasal Cannula Nasal Cannula Oxygen Flow Rate 2 2 2 Sepsis Recent Fever Within 48 Hours Sepsis New/Unexplained Change in Mental Status Sepsis Action Taken by Nursing 02/02/20 20:00 02/02/20 20:30 Temperature Temperature Source Pulse Rate 90 88 Pulse Rate from SpO2 Sensor 90 88 Pulse Rhythm Respiratory Rate 23 21 Respiratory Effort / Characteristics Respiratory Pattern Blood Pressure 136/85 121/79 Blood Pressure Mean 91 85 Pulse Oximetry 98 97 Oxygen Delivery Method Nasal Cannula Nasal Cannula Oxygen Flow Rate 2 2 Sepsis Recent Fever Within 48 Hours Sepsis New/Unexplained Change in Mental Status Sepsis Action Taken by Nursing CONSTITUTIONAL/VITAL SIGNS: Reviewed / noted above. GENERAL: Non-toxic in appearance. INTEGUMENTARY: Warm, dry, and [place]. HEAD: There is an abrasion to the left frontal region of the head. EYES: without scleral icterus or trauma. ENT/OROPHARYNX: clear and moist. LYMPHADENOPATHY/NECK: Is supple without lymphadenopathy or meningismus. RESPIRATORY: Lungs clear and equal. CARDIOVASCULAR: Regular rate and rhythm. GI/ABDOMEN: Soft and nontender. No organomegaly or pulsatile mass. No rebound or guarding. Normal bowel sounds. EXTREMITIES: Warm and well perfused. There is some minor abrasions to the bilateral knees. BACK: No CVA tenderness. NEUROLOGICAL: Intact without focal deficits. PSYCHIATRIC: normal affect. MUSCULOSKELETAL: Normally developed with good muscle tone. TRIAGE NURSING DOCUMENTATION REVIEWED. Course Administered Medications Ioversol (Optiray 320 125ml) 118 ml IV ONCE PRN PRN Reason: Interaction Checking Stop: 02/06/20 19:55 Last Admin: 02/02/20 19:56 Dose: 118 ml Documented by: [id number] Discontinued Medications Enoxaparin Sodium (Lovenox) 100 mg SQ NOW ONE Stop: 02/02/20 20:16 Last Admin: 02/02/20 20:40 Dose: 100 mg Documented by: [id number] Sodium Chloride (Nss 1000ml) 1,000 mls @ 999 mls/hr IV .Q1H1M MARLON Stop: 02/02/20 19:15 Last Infusion: 02/02/20 19:09 Dose: 0 mls/hr Documented by: [id number] Admin: 02/02/20 18:08 Dose: 999 mls/hr Documented by: [id number] Medical Decision Making Differential Diagnosis Differential includes acute coronary syndrome, myocardial infarction, CVA, TIA, anemia, infection, pneumonia, UTI, pyelonephritis, poor nutrition, dehydration, electrolyte disturbance,hypoglycemia. Medical Records Attestation: I reviewed the patient's medical records. Home Medications Current Medication List: was personally reviewed by me Laboratory Data Attestation: I reviewed the patient's lab results. Result diagrams: 02/02/20 17:50 02/02/20 17:50 Lab Results 02/02/20 02/02/20 02/02/20 Range/Units 17:50 17:50 17:50 WBC 12.64 H (4.8-10.8) K/uL RBC 4.72 (4.7-6.1) M/uL Hgb 15.2 (14.0-18.0) g/dL Hct 43.6 (42-52) % MCV 92.4 (80-100) fL MCH 32.2 (25-34) pg MCHC 34.9 (32-36) g/dL RDW Std Deviation 43.2 (36.4-46.3) fL RDW Coeff of Shon 12.9 (11.5-14.5) % Plt Count 176 (130-400) K/uL MPV 9.7 (7.4-10.4) fL Immature Gran % (Auto) 0.3 % Neut % (Auto) 84.7 % Lymph % (Auto) 7.5 % [place] % (Auto) 5.7 % Eos % (Auto) 1.3 % Baso % (Auto) 0.5 % Immature Gran # (Auto) 0.04 H (0.00-0.02) K/uL Neut # (Auto) 10.71 H (1.4-6.5) K/uL Lymph # (Auto) 0.95 L (1.2-3.4) K/uL [place] # (Auto) 0.72 H (0.11-0.59) K/uL Eos # (Auto) 0.16 (0-0.5) K/uL Baso # (Auto) 0.06 (0-0.2) K/uL PT 11.7 (9.0-12.0) Seconds INR 1.1 (0.9-1.1) Sodium 140 (136-145) mmol/L Potassium 3.0 L (3.5-5.1) mmol/L Chloride 107 (98-107) mmol/L Carbon Dioxide 25 (21-32) mmol/L Anion Gap 8.0 (3-11) BUN 21 H (7-18) mg/dl Creatinine 1.17 (0.6-1.4) mg/dl Est Cr Clr Drug Dosing Not Reportable Est GFR ( Amer) 71.3 Est GFR (Non-Af Amer) 61.5 BUN/Creatinine Ratio 18.1 (10-20) Glucose 173 H (70-99) mg/dl Lactate (0.4-2.0) mmol/L Calcium 9.2 (8.5-10.1) mg/dl Magnesium 2.2 (1.8-2.4) mg/dl Total Bilirubin 1.7 H (0.2-1) mg/dl AST 60 H (15-37) U/L ALT 83 H (12-78) U/L Alkaline Phosphatase 91 (45-117) U/L Total Creatine Kinase 65 (39-308) U/L Troponin I 0.031 (0-0.045) ng/ml Total Protein 7.3 (6.4-8.2) gm/dl Albumin 3.9 (3.4-5.0) gm/dl Globulin 3.4 (2.5-4.0) gm/dl Albumin/Globulin Ratio 1.1 (0.9-2) TSH 0.913 (0.300-4.500) uIu/ml 02/02/20 Range/Units 18:28 WBC (4.8-10.8) K/uL RBC (4.7-6.1) M/uL Hgb (14.0-18.0) g/dL Hct (42-52) % MCV (80-100) fL MCH (25-34) pg MCHC (32-36) g/dL RDW Std Deviation (36.4-46.3) fL RDW Coeff of Shon (11.5-14.5) % Plt Count (130-400) K/uL MPV (7.4-10.4) fL Immature Gran % (Auto) % Neut % (Auto) % Lymph % (Auto) % [place] % (Auto) % Eos % (Auto) % Baso % (Auto) % Immature Gran # (Auto) (0.00-0.02) K/uL Neut # (Auto) (1.4-6.5) K/uL Lymph # (Auto) (1.2-3.4) K/uL [place] # (Auto) (0.11-0.59) K/uL Eos # (Auto) (0-0.5) K/uL Baso # (Auto) (0-0.2) K/uL PT (9.0-12.0) Seconds INR (0.9-1.1) Sodium (136-145) mmol/L Potassium (3.5-5.1) mmol/L Chloride (98-107) mmol/L Carbon Dioxide (21-32) mmol/L Anion Gap (3-11) BUN (7-18) mg/dl Creatinine (0.6-1.4) mg/dl Est Cr Clr Drug Dosing Est GFR ( Amer) Est GFR (Non-Af Amer) BUN/Creatinine Ratio (10-20) Glucose (70-99) mg/dl Lactate 2.6 H* (0.4-2.0) mmol/L Calcium (8.5-10.1) mg/dl Magnesium (1.8-2.4) mg/dl Total Bilirubin (0.2-1) mg/dl AST (15-37) U/L ALT (12-78) U/L Alkaline Phosphatase (45-117) U/L Total Creatine Kinase (39-308) U/L Troponin I (0-0.045) ng/ml Total Protein (6.4-8.2) gm/dl Albumin (3.4-5.0) gm/dl Globulin (2.5-4.0) gm/dl Albumin/Globulin Ratio (0.9-2) TSH (0.300-4.500) uIu/ml Imaging Data Attestation: I personally reviewed and interpreted this imaging study as follows: My Impression: No acute disease. Radiologist's Impression: Chest x-ray:IMPRESSION: Cardiomegaly, emphysema, and postoperative change as above with no acute cardiopulmonary abnormality identified. CT scan of the head:IMPRESSION: There is no hemorrhage, mass effect, or evidence of acute territorial ischemia by CT criteria. CT CHEST for PE: 1. Extensive bilateral pulmonary embolus as above. 2. Emphysema and postoperative change from right upper lobe resection are similar to previous. 2. A 3 mm right middle lobe pulmonary nodule is pathologically indeterminant and unchanged from 08/20/2019. 3. Trace left pleural effusion. 4. No airspace consolidation is seen typical for pneumonia. 5. Hepatic steatosis. 6. Additional findings as above. ECG Data Attestation: I personally reviewed and interpreted this ECG as follows: Indication: + SOB/dyspnea Rate (beats per minute): 92 Rhythm: + normal sinus ECG ST segments: no ST elevation ECG Findings: no PVCs Change: no significant change (Compared to November 04, 2017) Blood Pressure Blood Pressure Findings: Normal blood pressure Head Trauma GCS Score: 15 MDM Narrative This is a 74-year-old male who presents to the ED with a chief complaint of a syncopal episode. The patient states that about 1 week ago he developed shortness of breath with exertion. He states that he has been feeling intermittently weak and dizzy. The patient states that if he walks more than 10 feet he develops shortness of breath. Walking up to 10 feet causes him to feel lightheaded. He states that his symptoms improve in about 10 minutes after he rests. The patient states that today he felt lightheaded and sat down on the toilet. He had a brief episode of syncope and fell forward into the wall striking his head causing an abrasion. He states that he could not get up off the floor and therefore called EMS. He did have an episode of fecal inconti nence at the time of the syncope. The patient did suffer some abrasions of his knees attempting to get off of the floor. He states that he could not get off the floor because he was too weak. The patient reports a history of right partial pneumonectomy related to lung cancer. He was transported here by EMS. EMS reported 88% room air saturations. The patient does not use home oxygen. Here he was noted to be 88 to 90% on room air. He denies any fevers or recent upper respiratory illnesses. Denies any black tarry stools or abdominal pains. Has not had nausea or vomiting. He states that he was on the floor for about 20 minutes. His vital signs are stable. Other than the abrasions on the head and the knees, the patient does not have any obvious abnormalities on my exam. The patient's chest x-ray did not show any acute process. White blood cell count was 12. Potassium is 3, BUN is 21, AST is 60, ALT is 83, glucose is 173. Total bilirubin is 1.7. TSH was normal. Troponin is negative. Lactic acid level slightly elevated at 2.6. CT scan of the head did not show acute process. CT scan of the chest shows evidence of extensive bilateral PEs. The patient was given subcu Lovenox. He will need to be admitted because of his hypoxia and oxygen requirement. The patient was given some IV fluids while here in addition to his Lovenox. Impression & Plan Bilateral pulmonary embolism, Weakness, URIARTE (dyspnea on exertion), Hypoxia Discharge Plan Visit Data Chief Complaint: Syncope Stated Complaint: SYNCOPE, FALL, WEAKNESS, DIZZINESS, SOB ED Provider: Aguila Freeman Discharge Problem: Bilateral pulmonary embolism, Weakness, URIARTE (dyspnea on exertion), Hypoxia Patient Disposition: Being Evaluated by Hospitalist Forms Stand Alone Forms: [facility] Shape Collage Prescriptions Prescriptions: No Action fluticasone propion-salmeterol [Advair Diskus] 100-50 mcg/dose blister with device 1 puffs INH Q12H Qty: 3 RF: 2 budesonide-formoterol [Symbicort] 80-4.5 mcg/actuation HFA aerosol inhaler 2 puff INHALATION Q12H RF: 0 lisinopril 10 mg tablet 10 mg PO DAILY RF: 0 Referrals Referrals: Amauri Zavala MD [Primary Care Provider] -
[2020-02-02] MEDS ORDERED: SODIUM CHLORIDE 0.9% 1000ML 1,000 ML IV SCH (18:15)
[2020-02-02 18:17] LABS: Basophils # (auto) 0.06 K/uL (0-0.2); Basophils % (auto) 0.5 %; Eosinophils # (auto) 0.16 K/uL (0-0.5); Eosinophils % (auto) 1.3 %; Hematocrit (blood only) 43.6 % (42-52); Hemoglobin 15.2 g/dL (14.0-18.0); Immature Granulocytes # (auto) 0.04 K/uL (0.00-0.02); Immature Granulocytes % (auto) 0.3 %; Lymphocytes # (auto) 0.95 K/uL (1.2-3.4); Lymphocytes % (auto) 7.5 %; Mean Corpuscular Hemoglobin 32.2 pg (25-34); Mean Corpuscular Hgb Conc 34.9 g/dL (32-36); Mean Corpuscular Volume 92.4 fL (80-100); Mean Platelet Volume 9.7 fL (7.4-10.4); Monocytes # (auto) 0.72 K/uL (0.11-0.59); Monocytes % (auto) 5.7 %; Neutrophils # (auto) 10.71 K/uL (1.4-6.5); Neutrophils % (auto) 84.7 %; Platelet Count 176 K/uL (130-400); RDW Coefficient of Variation 12.9 % (11.5-14.5); RDW Standard Deviation 43.2 fL (36.4-46.3); Red Blood Count 4.72 M/uL (4.7-6.1); White Blood Count 12.64 K/uL (4.8-10.8)
[2020-02-02 18:26] LABS: INR 1.1 (0.9-1.1); Prothrombin Time 11.7 Seconds (9.0-12.0)
[2020-02-02 18:34] LABS: Alanine Aminotransferase 83 U/L (12-78); Albumin Level 3.9 gm/dl (3.4-5.0); Aspartate Aminotransferase 60 U/L (15-37); BUN Creatinine Ratio 18.1 (10-20); Blood Urea Nitrogen 21 mg/dl (7-18); Calcium 9.2 mg/dl (8.5-10.1); Carbon Dioxide 25 mmol/L (21-32); Chloride 107 mmol/L (98-107); Est GFR (African American) 71.3; Est GFR (Non-African American) 61.5; Glucose 173 mg/dl (70-99); Magnesium 2.2 mg/dl (1.8-2.4); Sodium 140 mmol/L (136-145)
[2020-02-02 18:45] LABS: Albumin Globulin Ratio 1.1 (0.9-2); Alkaline Phosphatase 91 U/L (45-117); Bilirubin,Total 1.7 mg/dl (0.2-1); Creatine Kinase 65 U/L (39-308); Globulin 3.4 gm/dl (2.5-4.0); Thyroid Stimulating Hormone 0.913 uIu/ml (0.300-4.500); Total Protein 7.3 gm/dl (6.4-8.2); Troponin I 0.031 ng/ml (0-0.045)
--- NOTE | 2020-02-02 19:24 | XRay Report ---
SINGLE VIEW CHEST CLINICAL HISTORY: Generalized weakness. Dyspnea. FINDINGS: An AP, portable, upright chest radiograph is compared to study dated 03/11/2018 and correlat ed with chest CT dated 08/20/2019. The examination is degraded by portable technique and patient rotat ion. The heart is enlarged noting atherosclerotic calcification of the thoracic aorta. The pulmonary vasculature is noncongested. Emphysema and chronic interstitial thickening are similar to previous. Postoperative change and volume loss is consistent with right-sided pulmonary resection. There is no airspace consolidation or large pleural effusion. Foci of scarring/atelectasis are noted at the lung bases. No pneumothorax is seen. The skeletal structures are osteopenic. The bony thorax is grossly in tact. IMPRESSION: Cardiomegaly, emphysema, and postoperative change as above with no acute cardiopulmonary abnormality identified. ACT 112: Negative or not required by law. Electronically signed by: Jonas Mark M.D. 02/02/2020 7:23 PM
[2020-02-02] MEDS ORDERED: OPTIRAY 320 125ml IV PRN (19:56)
--- NOTE | 2020-02-02 19:59 | CT Scan Report ---
CT SCAN OF THE BRAIN WITHOUT IV CONTRAST CLINICAL HISTORY: Syncope. Head injury. COMPARISON STUDY: CT of the brain dated 10/04/2019. TECHNIQUE: Unenhanced axial CT scan of the brain is performed from the vertex to the skull base. A do se lowering technique was utilized adhering to the principles of ALARA. FINDINGS: Brain parenchyma: There are age-related involutional changes noting mild subcortical and periventric ular microangiopathic change. There is no hemorrhage, mass effect, or evidence of acute territorial i schemia by CT criteria. Obrien-white matter differentiation is preserved. No extra-axial fluid collecti on is seen. Ventricles, sulci, cisterns: Prominent secondary to involutional change. Intracranial vasculature: There is atherosclerotic calcification of the cavernous carotid and vertebr al arteries. Calvarium: The skeletal structures are osteopenic. No depressed calvarial fracture is identified. Soft tissues: There is a left frontal scalp contusion. Sinuses and mastoids: There is trace mucosal thickening in the right maxillary antrum. The remaining visualized paranasal sinuses are clear. The mastoid air cells are well pneumatized. Orbits: The bony orbits are grossly intact. IMPRESSION: There is no hemorrhage, mass effect, or evidence of acute territorial ischemia by CT crit ap. ACT 112: Negative or not required by law. Electronically signed by: Jonas Mark M.D. 02/02/2020 7:58 PM
--- NOTE | 2020-02-02 20:07 | CT Scan Report ---
CT ANGIOGRAM OF THE CHEST CLINICAL HISTORY: Syncope. Lung cancer. COMPARISON STUDY: Chest CT scans dated 08/20/2019 and 12/10/2017. TECHNIQUE: Following the IV administration of 118 cc of Optiray 320, CT angiogram of the chest was pe rformed from the upper abdomen to the thoracic inlet utilizing the pulmonary embolus protocol. Images are reviewed in the axial, sagittal, and coronal planes. 3-D MIPS images are created and assessed. I V contrast was administered without complication. A dose lowering technique was utilized adhering to the principles of ALARA. CT DOSE: 1460.51 mGy.cm FINDINGS: Thyroid: Imaged portions of the thyroid gland are normal in size and heterogeneous and attenuation. Thoracic aorta: There is atherosclerotic calcification of the thoracic aorta, which is normal in melanie kermit and demonstrates standard 3-vessel arch anatomy. The thoracic aorta is not well opacified. Pulmonary vasculature: The main pulmonary arteries are mildly dilated suggesting pulmonary artery hyp ertension. There is extensive bilateral pulmonary embolus. There is thrombus within the distal right main pulmonary artery. This extends into the right upper, right middle, and right lower lobe pulmonar y arteries and reaches segmental and subsegmental branches. Thrombus is present within the distal lef t main pulmonary artery within the left upper and lower lobe pulmonary arteries. This extends into se gmental and subsegmental branches. Heart: The heart is mildly enlarged and without pericardial effusion. The coronary arteries are dense ly calcified. Lungs and pleural spaces: Emphysematous change is again noted. There is postoperative change from rig ht upper lobe resection with associated volume loss in the right lung. Foci of parenchymal scarring/a telectasis are again seen at both lung bases. There is a trace left pleural effusion. No airspace con solidation is seen typical for pneumonia. There is a 3 mm right middle lobe pulmonary nodule seen on image #144. Mediastinum: There is no mediastinal lymphadenopathy. Cande: Clear. Axillae: There is no axillary lymphadenopathy. Upper abdomen: There is a small hiatal hernia. The liver appears steatotic. A splenule is again seen within or adjacent to the pancreatic tail. Skeletal structures: The skeletal structures are osteopenic. Degenerative change and hyperkyphosis ar e noted in the thoracic spine. Arthritic change is seen in the shoulders. No lytic or blastic bony le sions are seen. A lipoma is again noted within the left chest wall. IMPRESSION: 1. Extensive bilateral pulmonary embolus as above. 2. Emphysema and postoperative change from right upper lobe resection are similar to previous. 2. A 3 mm right middle lobe pulmonary nodule is pathologically indeterminant and unchanged from 2018. 3. Trace left pleural effusion. 4. No airspace consolidation is seen typical for pneumonia. 5. Hepatic steatosis. 6. Additional findings as above. Electronically signed by: Jonas Mark M.D. 02/02/2020 8:05 PM
[2020-02-02] MEDS ORDERED: ENOXAPARIN 100 MG/1ML SYR SQ ONE (20:15)
--- NOTE | 2020-02-02 21:01 | History & Physical Report ---
Date of Service February 02, 2020 Assessment & Plan (1) Syncope and collapse: Likely related to bilateral PE. Monitor on telemetry for occult arrhythmia. Echo in am-eval heart strain in setting of acute elevation of pulmonary pressures. Coronary calcification on CT imaging, however, no known h/o CAD per se and no symptoms of chest pain. (2) Bilateral pulmonary embolism: Likely provoked by sedentary lifestyle reported in setting of h/o recurrent prostate cancer treated with XRT and h/o lung adenocarcinoma. Cont Lovenox-may discuss with denture contour wire specialist if apixaban may be a good alternative for him as he has established care with Dr. Jaramillo. Poor prognosis secondary to age and elevated lactate, however, clinically appears well at rest. Hemodynamically stable so no indication for thrombolytic therapy or embolectomy. (3) Lung nodule: monitor as outpatient per criteria. (4) HTN (hypertension): at goal, cont lisinopril per home regimen. Low salt diet. (5) Transaminitis: has a recent h/o elevated LFTs in the clinic earlier this year but no follow-up. Evidence of fatty liver on CT scan and enzyme levels are lower than before. No RUQ tenderness, fever at this time. Trend in am and Liver US ordered. (6) Hypokalemia: Replace and repeat in am with Mg level. (7) Discharge planning issues: Lovenox to prevent further clot formation Full Code as discussed with the patient in the ER on admission. May not want pr olonged life support. Dispo-pending clinical improvement, likely 2-3 days. Velma Burnette DO [facility] Hospitalist Admission and Anticipated Discharge Date Anticipated date of discharge: 02/05/20 History of Present Illness Chief Complaint: syncope Primary Care Provider: Amauri Zavala MD 74 yo M with h/o prostate and lung cancer, reported in remission, presented after collapsing in his bathroom today. He reports being very SOB and dizzy for the past 4-5 weeks. He denies chest pain, and reports that 3 months ago he was able to walk a mile or climb his 14 steps in his home. However, now he is very symptomatic with minimal exertion. In the ER, workup revealed a bilateral PE. The patient reports a very sedentary lifestyle for a few months. He denies any new OTC, herbals or other homeopathic treatments, or taking anything outside of his prescirbed medication regimen. He denies any long trips or recent travel. He denies any injury to his legs, recent surgeries or hospitalizations, and denies any fevers. He also denies any history of blood clots in the past, and has no known family history of them. He denies any cough, or interaction with known COVID-19 positive patients. He lives at home with his son. Allergies Allergy/AdvReac Type Severity Reaction Status Date / Time No Known Allergies Allergy Verified 02/02/20 18:50 Home Medications Home Medications Medication Instructions Recorded Confirmed Type lisinopril 10 mg PO DAILY 10/05/19 02/02/20 History albuterol sulfate 2 puff INHALATION QID PRN 02/02/20 02/02/20 History budesonide-formoterol [Symbicort] 2 puff INHALATION Q12H 02/02/20 02/02/20 History Past Med/Surg History Medical History (Updated 02/02/20 @ 22:22 by Velma Burnette DO) Adenocarcinoma of lung (Acute) Chronic airflow obstruction (Acute) H/O nonmelanoma skin cancer H/O tobacco use, presenting hazards to health HTN (hypertension) Lung nodule (Acute) Mass of lateral neck (Acute) Parotid mass (Acute) s/p removal Prostate cancer (Inactive 12/15/17) "Elevated PSA at 20.26 Status post ultrasound-guided biopsies December 16, 2017 Adenocarcinoma the prostate [place] 3+4 and 4+3, perineural invasion and positive seminal vesicle biopsy Prostate volume 47.95 Prostate density 0.42" On 01/15/18 10:41 Gemini Starr wrote "Elevated PSA at 20.26 Status post ultrasound-guided biopsies December 16, 2017 Adenocarcinoma the prostate [place] 3+4 and 4+3 Prostate volume 47.95 Prostate density 0.42" Status post completion of radiation therapy 09/22/2018. He received 7000 cGy utilizing hypo-fractionation. Surgical History (Updated 02/02/20 @ 22:10 by Velma Burnette DO) S/P inguinal hernia repair S/P lobectomy of lung s/p Right Upper Lobectomy on 03/04/18-Timothy Family History Other Family history non-contributory Social History Preferred Language: Uzbek Beliefs That Will Affect Care: None Feels Safe at Home: Yes Smoking Status: Former smoker Cigarettes Per Day: 20 ; Review of Systems Review of Systems: All systems reviewed & are unremarkable except as noted in Subjective Physical Exam Physical Exam: CONSTITUTIONAL: WNWD, vitals as above, generally well- appearing EYES: PERRL, normal conjunctivae, no scleral icterus ENT: external ear and nose normal, oropharynx clear, MMM, poor dentition NECK: trachea midline RESPIRATORY: clear to auscultation bilaterally, no crackles, rales or wheezes, normal respiratory effort CARDIOVASCULAR: regular rate and rhythm, S1 and 2 heard without murmurs, gallops or rubs, no JVD, no peripheral edema CHEST: inspection of chest was normal GASTROINTESTINAL: soft, nontender, nondistended MUSCULOSKELETAL: strength 5/5 throughout, head is normocephalic and atraumatic SKIN: warm and dry NEUROLOGIC: CN 2-12 grossly intact, no sensory deficit, normal cognition, normal speech, no gross focal deficits. PSYCHIATRIC: alert cooperative and oriented to person, place and time. Results & Data Results & Data ([facility]) Vital Signs (Past 12 Hours) Vital Signs Temp Pulse Resp BP Pulse Ox 02/02/20 20:30 88 21 121/79 97 02/02/20 20:00 90 23 136/85 98 02/02/20 19:30 93 H 20 116/80 100 02/02/20 19:00 95 H 24 123/62 98 02/02/20 18:30 90 20 103/67 98 02/02/20 18:17 94 02/02/20 18:00 93 H 21 104/72 95 02/02/20 17:50 36.6 C 96 H 17 121/81 89 L Laboratory Results Short CBC 02/02/20 Range/Units 17:50 WBC 12.64 H (4.8-10.8) K/uL Hgb 15.2 (14.0-18.0) g/dL Hct 43.6 (42-52) % Plt Count 176 (130-400) K/uL BMP 02/02/20 17:50 Sodium 140 Potassium 3.0 L Chloride 107 Carbon Dioxide 25 BUN 21 H Creatinine 1.17 Glucose 173 H Calcium 9.2 Cardiac Enzymes 02/02/20 Range/Units 17:50 Total Creatine Kinase 65 (39-308) U/L Troponin I 0.031 (0-0.045) ng/ml Liver Function 02/02/20 Range/Units 17:50 Total Bilirubin 1.7 H (0.2-1) mg/dl AST 60 H (15-37) U/L ALT 83 H (12-78) U/L Alkaline Phosphatase 91 (45-117) U/L Albumin 3.9 (3.4-5.0) gm/dl Diagnostic Findings CT SCAN OF THE BRAIN WITHOUT IV CONTRAST CLINICAL HISTORY: Syncope. Head injury. FINDINGS: Brain parenchyma: There are age-related involutional changes noting mild subcortical and periventricular microangiopathic change. There is no hemorrhage, mass effect, or evidence of acute territorial ischemia by CT criteria. Obrien- white matter differentiation is preserved. No extra-axial fluid collection is seen. Ventricles, sulci, cisterns: Prominent secondary to involutional change. Intracranial vasculature: There is atherosclerotic calcification of the cavernous carotid and vertebral arteries. Calvarium: The skeletal structures are osteopenic. No depressed calvarial fracture is identified. Soft tissues: There is a left frontal scalp contusion. Sinuses and mastoids: There is trace mucosal thickening in the right maxillary antrum. The remaining visualized paranasal sinuses are clear. The mastoid air cells are well pneumatized. Orbits: The bony orbits are grossly intact. IMPRESSION: There is no hemorrhage, mass effect, or evidence of acute territorial ischemia by CT criteria. SINGLE VIEW CHEST FINDINGS: An AP, portable, upright chest radiograph is compared to study dated 03/11/2018 and correlated with chest CT dated 08/20/2019. The examination is degraded by portable technique and patient rotation. The heart is enlarged noting atherosclerotic calcification of the thoracic aorta. The pulmonary vasculature is noncongested. Emphysema and chronic interstitial thickening are similar to previous. Postoperative change and volume loss is consistent with right-sided pulmonary resection. There is no airspace consolidation or large pleural effusion. Foci of scarring/atelectasis are noted at the lung bases. No pneumothorax is seen. The skeletal structures are osteopenic. The bony thorax is grossly intact. IMPRESSION: Cardiomegaly, emphysema, and postoperative change as above with no acute cardiopulmonary abnormality identified. CT ANGIOGRAM OF THE CHEST CLINICAL HISTORY: Syncope. Lung cancer. FINDINGS: Thyroid: Imaged portions of the thyroid gland are normal in size and het erogeneous and attenuation. Thoracic aorta: There is atherosclerotic calcification of the thoracic aorta, which is normal in caliber and demonstrates standard 3-vessel arch anatomy. The thoracic aorta is not well opacified. Pulmonary vasculature: The main pulmonary arteries are mildly dilated suggesting pulmonary artery hypertension. There is extensive bilateral pulmonary embolus. There is thrombus within the distal right main pulmonary artery. This extends into the right upper, right middle, and right lower lobe pulmonary arteries and reaches segmental and subsegmental branches. Thrombus is present within the distal left main pulmonary artery within the left upper and lower lobe pulmonary arteries. This extends into segmental and subsegmental branches. Heart: The heart is mildly enlarged and without pericardial effusion. The coronary arteries are densely calcified. Lungs and pleural spaces: Emphysematous change is again noted. There is postoperative change from right upper lobe resection with associated volume loss in the right lung. Foci of parenchymal scarring/atelectasis are again seen at both lung bases. There is a trace left pleural effusion. No airspace consolidation is seen typical for pneumonia. There is a 3 mm right middle lobe pulmonary nodule seen on image #144. Mediastinum: There is no mediastinal lymphadenopathy. Cande: Clear. Axillae: There is no axillary lymphadenopathy. Upper abdomen: There is a small hiatal hernia. The liver appears steatotic. A splenule is again seen within or adjacent to the pancreatic tail. Skeletal structures: The skeletal structures are osteopenic. Degenerative change and hyperkyphosis are noted in the thoracic spine. Arthritic change is seen in the shoulders. No lytic or blastic bony lesions are seen. A lipoma is again no rosibel within the left chest wall. IMPRESSION: 1. Extensive bilateral pulmonary embolus as above. 2. Emphysema and postoperative change from right upper lobe resection are similar to previous. 2. A 3 mm right middle lobe pulmonary nodule is pathologically indeterminant and unchanged from 08/20/2019. 3. Trace left pleural effusion. 4. No airspace consolidation is seen typical for pneumonia. 5. Hepatic steatosis. 6. Additional findings as above. Code Status & VTE Plan Code Status Full VTE Prophylaxis Plan VTE Prophylaxis will be ordered: Yes
[2020-02-02] MEDS ORDERED: ALBUTEROL HFA 8 GM INHALER INH PRN (21:52)
[2020-02-02] MEDS ORDERED: SODIUM CHLORIDE 0.9% 1000ML 500 ML IV ONE (21:54)
[2020-02-02] MEDS ORDERED: BUDESONIDE/FORMOTEROL FUMARATE 80/4.5 60 PUFFS/INHALER INH SCH (22:00)
--- NOTE | 2020-02-02 22:58 | Ultrasound Report ---
ULTRASOUND BILATERAL LOWER EXTREMITY VENOUS CLINICAL HISTORY: Pulmonary embolus. COMPARISON STUDY: No priors. TECHNIQUE: Real-time, grayscale, and color Doppler sonography of the deep veins of the right and left lower extremity was performed from the inguinal crease to the calf. Compression and augmentation wer e utilized. FINDINGS: Right lower extremity: There is occlusive deep venous thrombosis identified in the right popliteal ve in. The right common femoral and superficial femoral veins are patent and normally compressible. The greater saphenous vein and the profunda femoris vein at the junction with the common femoral vein are clear. The visualized calf veins are patent. There is thrombosis of the right superficial femoral an d popliteal arteries. Left lower extremity: There is no sonographic evidence of deep venous thrombosis in the left lower ex tremity. The common femoral, superficial femoral, and popliteal veins are patent and normally china sible. The greater saphenous vein and the profunda femoris vein at the junction with the common femor al vein are clear. The visualized calf veins are patent. IMPRESSION: 1. There is occlusive deep venous thrombosis identified in the right popliteal vein. 2. There is no sonographic evidence of deep venous thrombosis identified in the left lower extremity. 3. There is thrombosis of the right superficial femoral and popliteal arteries. ACT 112: Negative or not required by law. Electronically signed by: Jonas Mark M.D. 02/02/2020 10:57 PM
[2020-02-02] MEDS ORDERED: ACETAMINOPHEN 325 MG TAB PO PRN (23:35)
[2020-02-02] MEDS ORDERED: POTASSIUM CHLORIDE 20 MEQ TABCR PO STA (23:35)
[2020-02-02] MEDS ORDERED: ONDANSETRON INJ 2 MG/ML 2 ML VIAL IV PRN (23:35)
[2020-02-02] MEDS ORDERED: POLYETHYLENE (MIRALAX) 17 GM PACK PO PRN (23:35)
[2020-02-03 04:13] LABS: Appearance Urine Clear (Clear); Bacteria Urine Automated Negative (Negative); Blood Urine Negative (Negative); Color Urine Dark Yellow; Glucose Urine UA Negative (Negative); Ketones Urine Trace (Negative); Leukocyte Esterase Urine Negative (Negative); Nitrite Urine Negative (Negative); Protein Urine Trace (Negative); RBC Urine Automated 0-4 /hpf (0-4); Specific Gravity Urine > 1.045 (1.000-1.030); Urobilinogen Urine Negative (Negative); pH Urine 5.5 (4.5-7.5)
[2020-02-03 04:17] LABS: Bilirubin Urine Negative (Negative); Ictotest Urine Negative (Negative)
[2020-02-03 07:55] LABS: Hematocrit (blood only) 42.5 % (42-52); Hemoglobin 14.3 g/dL (14.0-18.0); Mean Corpuscular Hemoglobin 31.4 pg (25-34); Mean Corpuscular Hgb Conc 33.6 g/dL (32-36); Mean Corpuscular Volume 93.2 fL (80-100); Platelet Count 161 K/uL (130-400); RDW Coefficient of Variation 13.2 % (11.5-14.5); RDW Standard Deviation 44.7 fL (36.4-46.3); Red Blood Count 4.56 M/uL (4.7-6.1); White Blood Count 8.11 K/uL (4.8-10.8)
[2020-02-03 08:01] LABS: Albumin Level 3.5 gm/dl (3.4-5.0); BUN Creatinine Ratio 19.1 (10-20); Bilirubin Direct 0.3 mg/dl (0-0.2); Calcium 8.9 mg/dl (8.5-10.1); Creatinine Clr Calc Pharmacy 75.1 ml/min; Est GFR (African American) 79.4; Est GFR (Non-African American) 68.5; Magnesium 2.3 mg/dl (1.8-2.4); Potassium 3.5 mmol/L (3.5-5.1)
[2020-02-03 08:05] LABS: Total Protein 6.8 gm/dl (6.4-8.2)
--- NOTE | 2020-02-03 08:23 | Ultrasound Report ---
US liver CLINICAL HISTORY: elevated transaminases elevated liver function tests COMPARISON STUDY: No previous studies for comparison. FINDINGS: Fatty infiltration of liver. Gallstone filled gallbladder. Gallbladder wall 2 mm. No eviden ce for pericholecystic fluid. Common bile duct 5 mm. Poor visibility of the pancreas due to overlying bowel content. Right kidney i s negative for hydronephrosis. IMPRESSION: 1. Fatty infiltration of liver. 2. Gallstones. 3. Normal caliber bile ducts. ACT 112: Negative or not required by law. The above report was generated using voice recognition software. It may contain grammatical, syntax or spelling errors. Electronically signed by: Ramiro Peralta M.D. 02/03/2020 8:21 AM
[2020-02-03] MEDS: ENOXAPARIN 100 MG/1ML SYR SQ SCH ×2 (08:47→21:44)
[2020-02-03] MEDS: FLUTICASONE/VILANTEROL 100/25MCG 14 PUFFS/INHALER INH SCH (08:47)
[2020-02-03] MEDS ORDERED: lisinopriL 10 MG TAB PO SCH (09:00)
--- NOTE | 2020-02-03 14:10 | Hospitalist Progress Note ---
Date of Service February 03, 2020 Assessment & Plan (1) Syncope and collapse: Syncope DD: Could be secondary to hypoxia from PE/Hypotension CT head:There is no hemorrhage, mass effect, or evidence of acute territorial ischemia by CT criteria. Continue to monitor on Telemetry Hold Lisinopril as BP relatively low PT/OT prior to discharge (2) Bilateral pulmonary embolism: Acute Bilateral PE Acute Right Lower Extremity DVT: Hypoxia --CTA:Extensive bilateral pulmonary embolus. Emphysema and postoperative change from right upper lobe resection are similar to previous. A 3 mm right middle lobe pulmonary nodule is pathologically indeterminant and unchanged from 08/20/2019. Trace left pleural effusion. No airspace consolidation is seen typical for pneumonia. Hepatic steatosis. --Venous Doppler:There is occlusive deep venous thrombosis identified in the right popliteal vein. There is no sonographic evidence of deep venous thrombosis identified in the left lower extremity. There is thrombosis of the right superficial femoral and popliteal arteries. --Risk Factors: Former smoker, sedentary lifestyle, Recurrent prostate cancer, lung adenocarcinoma --ECHO: He was technically limited. The right ventricle is not well visualized. The right ventricle is grossly normal size. Quality to right ventricular systolic function appears mildly reduced in limited views. Doppler findings do not suggest pulmonary hypertension. There is trace tricuspid regurgitation. EF 60 to 65%. Mild concentric LVH. Mild aortic regurgitation. Normal right atrial pressure of 3 mmHg. --Limited drug choice for anticoagulation due to Financial/Insurance issues --Discussed with Oncology and --Continue Lovenox till INR is therapeutic --Started on Coumadin --Monitor INR --Needs follow up with Coumadin clinic upon discharge --Wean off of supplemental oxygen as able (3) Lung nodule: H/O Smoking Unchanged as per CT Follow up as outpatient. (4) HTN (hypertension): Blood pressure relatively low Hold lisinopril for now Monitor (5) Transaminitis: Likely due to hepatic steatosis Liver USD:Fatty infiltration of liver. Gallstones. Normal caliber bile ducts. LFTs trended down Monitor (6) Hypokalemia: Normal Mag levels Replace electrolytes as needed H/O Recurrent prostate Cancer H/O Lung Adenocarcinoma Follow up as outpatient Elevated Lactate Levels: Likely Type B lactic acidosis No obvious source of infection Blood Cx:pending (7) Discharge planning issues: DVT Px: On Lovenox and coumadin Code Status Full Code Admission and Anticipated Discharge Date Admission Date: February 02, 2020 Anticipated date of discharge: 02/05/20 Subjective Patient is seen and examined at bedside Shortness of breath much improved Only minimal dizziness reported this morning Denies any chest pain, nausea, abdominal pain No bleeding issues Requiring 2 L of supplemental oxygen to maintain saturation Discussed with oncology today Review of Systems Review of Systems: All systems reviewed & are unremarkable except as noted in HPI & below Physical Exam Physical Exam: Physical Exam: Vitals signs as noted above General Appearance:Moderately built and nourished, no apparent distress Head: normocephalic, Atraumatic Eyes: normal inspection, EOMI Neck: supple, Trachea midline Respiratory/Chest: Normal breath sounds, CTA Cardiovascular: S1, S2, No murmur Abdomen/GI:Soft, Non tender, Bowel sounds present Extremities/Musculoskelatal:normal inspection, no edema Neurologic/Psych:AAOX3, grossly no focal neurological deficits Skin: normal color, warm Results & Data Results & Data ([facility]) Vital Signs (Past 12 Hours) Vital Signs Temp Pulse Resp BP Pulse Ox 02/03/20 11:58 36.5 C 82 18 103/69 100 02/03/20 07:50 36.8 C 78 18 101/64 97 02/03/20 03:53 88 94/61 L 02/03/20 03:52 78 91/58 L 02/03/20 03:50 37 C 74 18 110/74 94 Laboratory Results Short CBC 02/02/20 02/03/20 Range/Units 17:50 07:20 WBC 12.64 H 8.11 (4.8-10.8) K/uL Hgb 15.2 14.3 (14.0-18.0) g/dL Hct 43.6 42.5 (42-52) % Plt Count 176 161 (130-400) K/uL BMP 02/02/20 02/03/20 17:50 07:15 Sodium 140 141 Potassium 3.0 L 3.5 D Chloride 107 110 H Carbon Dioxide 25 26 BUN 21 H 20 H Creatinine 1.17 1.07 Glucose 173 H 117 H Calcium 9.2 8.9 Cardiac Enzymes 02/02/20 Range/Units 17:50 Total Creatine Kinase 65 (39-308) U/L Troponin I 0.031 (0-0.045) ng/ml Liver Function 02/02/20 02/03/20 Range/Units 17:50 07:15 Total Bilirubin 1.7 H 1.0 D (0.2-1) mg/dl Direct Bilirubin 0.3 H (0-0.2) mg/dl AST 60 H 43 H (15-37) U/L ALT 83 H 73 (12-78) U/L Alkaline Phosphatase 91 85 (45-117) U/L Albumin 3.9 3.5 (3.4-5.0) gm/dl Urine 02/03/20 Range/Units 03:48 Urine Color Dark Yellow Urine Appearance Clear (Clear) Urine pH 5.5 (4.5-7.5) Ur Specific [place] > 1.045 H (1.000-1.030) Urine Protein Trace H (Negative) Urine Glucose (UA) Negative (Negative)
--- NOTE | 2020-02-03 14:38 | Electrocardiogram Report ---
Test Reason : Blood Pressure : / mmHG Vent. Rate : 092 BPM Atrial Rate : 092 BPM P-R Int : 136 ms QRS Dur : 096 ms QT Int : 386 ms P-R-T Axes : 076 061 033 degrees QTc Int : 477 ms Normal sinus rhythm Nonspecific ST and T wave abnormality Abnormal ECG When compared with ECG of 04-NOV-2017 20:46, MA interval has decreased ST now depressed in Anterior leads T wave inversion now evident in Anterior leads Confirmed by Billy King ([id number]) on 02/03/2020 2:38:36 PM Referred By: REFERRED SELF Confirmed By:Troy King
[2020-02-03] MEDS: WARFARIN SOD 7.5 MG TAB PO SCH (17:36)
[2020-02-04 07:07] LABS: Hematocrit (blood only) 39.7 % (42-52); Mean Corpuscular Hemoglobin 31.4 pg (25-34); Mean Corpuscular Hgb Conc 32.7 g/dL (32-36); Mean Corpuscular Volume 95.9 fL (80-100); Mean Platelet Volume 10.2 fL (7.4-10.4); Platelet Count 129 K/uL (130-400); RDW Coefficient of Variation 13.3 % (11.5-14.5); RDW Standard Deviation 46.3 fL (36.4-46.3); Red Blood Count 4.14 M/uL (4.7-6.1); White Blood Count 6.21 K/uL (4.8-10.8)
[2020-02-04 07:17] LABS: INR 1.1 (0.9-1.1); Prothrombin Time 11.7 Seconds (9.0-12.0)
[2020-02-04 07:43] LABS: Albumin Level 3.2 gm/dl (3.4-5.0); BUN Creatinine Ratio 20.1 (10-20); Creatinine Clr Calc Pharmacy 86.3 ml/min; Est GFR (African American) 92.9; Est GFR (Non-African American) 80.1; Magnesium 2.2 mg/dl (1.8-2.4); Potassium 3.3 mmol/L (3.5-5.1)
[2020-02-04] MEDS ORDERED: POTASSIUM CHLORIDE 20 MEQ TABCR PO STA (07:44)
[2020-02-04 07:45] LABS: Bilirubin,Total 1.1 mg/dl (0.2-1); Globulin 3.2 gm/dl (2.5-4.0); Total Protein 6.4 gm/dl (6.4-8.2)
[2020-02-04] MEDS: ENOXAPARIN 100 MG/1ML SYR SQ SCH ×2 (08:43→20:05)
[2020-02-04] MEDS: FLUTICASONE/VILANTEROL 100/25MCG 14 PUFFS/INHALER INH SCH (08:44)
--- NOTE | 2020-02-04 13:00 | Hospitalist Progress Note ---
Date of Service February 04, 2020 Assessment & Plan (1) Syncope and collapse: Syncope DD: Could be secondary to hypoxia from PE/Hypotension CT head:There is no hemorrhage, mass effect, or evidence of acute territorial ischemia by CT criteria. Telemetry: no issues Hold Lisinopril as BP relatively low PT/OT eval done (2) Bilateral pulmonary embolism: Acute Bilateral PE Likely due to acute Right Popliteal vein DVT: Hypoxia: Resolved --CTA:Extensive bilateral pulmonary embolus. Emphysema and postoperative change from right upper lobe resection are similar to previous. A 3 mm right middle lobe pulmonary nodule is pathologically indeterminant and unchanged from 08/20/2019. Trace left pleural effusion. No airspace consolidation is seen typical for pneumonia. Hepatic steatosis. --Venous Doppler:There is occlusive deep venous thrombosis identified in the right popliteal vein. There is no sonographic evidence of deep venous thrombosis identified in the left lower extremity. There is thrombosis of the right superficial femoral and popliteal arteries. --Risk Factors: Former smoker, sedentary lifestyle, Recurrent prostate cancer, lung adenocarcinoma --ECHO: He was technically limited. The right ventricle is not well visualized. The right ventricle is grossly normal size. Quality to right ventricular systolic function appears mildly reduced in limited views. Doppler findings do not suggest pulmonary hypertension. There is trace tricuspid regurgitation. EF 60 to 65%. Mild concentric LVH. Mild aortic regurgitation. Normal right atrial pressure of 3 mmHg. --Limited drug choice for anticoagulation due to Financial/Insurance issues --Discussed with Oncology and --Continue Lovenox till INR is therapeutic --Continue Coumadin 7.5 mg today --Monitor INR:1.1 today --Needs follow up with Coumadin clinic upon discharge --saturating well on room air (3) Lung nodule: H/O Smoking Unchanged as per CT Follow up as outpatient. (4) HTN (hypertension): Blood pressure relatively low Hold lisinopril for now Monitor (5) Transaminitis: Likely due to hepatic steatosis Liver USD:Fatty infiltration of liver. Gallstones. Normal caliber bile ducts. LFTs trended down Monitor (6) Hypokalemia: Normal Mag levels Replace electrolytes as needed H/O Recurrent prostate Cancer H/O Lung Adenocarcinoma Follow up as outpatient Elevated Lactate Levels: Likely Type B lactic acidosis No obvious source of infection Blood Cx:No growth to date (7) Discharge planning issues: DVT Px: On Lovenox and coumadin Code Status Full Code Admission and Anticipated Discharge Date Admission Date: February 02, 2020 Anticipated date of discharge: 02/05/20 Subjective Patient is seen and examined at bedside States feeling well today SOB, dizziness resolved No new comaplaints Denies any chest pain, nausea, abdominal pain, bleeding issues Saturating well on room air Review of Systems Review of Systems: All systems reviewed & are unremarkable except as noted in HPI & below Physical Exam Physical Exam: Physical Exam: Vitals signs as noted above General Appearance:Moderately built and nourished, no apparent distress Head: normocephalic, Atraumatic Eyes: normal inspection, EOMI Neck: supple, Trachea midline Respiratory/Chest: Normal breath sounds, CTA Cardiovascular: S1, S2, No murmur Abdomen/GI:Soft, Non tender, Bowel sounds present Extremities/Musculoskelatal:normal inspection, no edema Neurologic/Psych:AAOX3, grossly no focal neurological deficits Skin: normal color, warm Results & Data Results & Data ([place]) Vital Signs (Past 12 Hours) Vital Signs Temp Pulse Resp BP Pulse Ox 02/04/20 11:39 36.8 C 77 16 125/81 96 02/04/20 11:06 36.3 C L 89 20 130/87 95 02/04/20 07:19 36.9 C 61 20 115/74 93 02/04/20 03:45 36.7 C 58 L 20 117/73 92 Laboratory Results Short CBC 02/04/20 Range/Units 06:42 WBC 6.21 (4.8-10.8) K/uL Hgb 13.0 L (14.0-18.0) g/dL Hct 39.7 L (42-52) % Plt Count 129 L (130-400) K/uL BMP 02/04/20 06:42 Sodium 140 Potassium 3.3 L Chloride 112 H Carbon Dioxide 24 BUN 19 H Creatinine 0.94 Glucose 106 H Calcium 9.0 Liver Function 02/04/20 Range/Units 06:42 Total Bilirubin 1.1 H (0.2-1) mg/dl AST 39 H (15-37) U/L ALT 66 (12-78) U/L Alkaline Phosphatase 71 (45-117) U/L Albumin 3.2 L (3.4-5.0) gm/dl
[2020-02-04] MEDS: WARFARIN SOD 7.5 MG TAB PO SCH (15:42)
[2020-02-04 23:38] VITALS: TEMP 98.2; O2SAT 94
[2020-02-05 06:05] LABS: Hematocrit (blood only) 38.4 % (42-52); Mean Corpuscular Hemoglobin 31.3 pg (25-34); Mean Corpuscular Hgb Conc 33.9 g/dL (32-36); Mean Corpuscular Volume 92.5 fL (80-100); Mean Platelet Volume 9.6 fL (7.4-10.4); Platelet Count 144 K/uL (130-400); RDW Coefficient of Variation 13.2 % (11.5-14.5); RDW Standard Deviation 44.7 fL (36.4-46.3); Red Blood Count 4.15 M/uL (4.7-6.1); White Blood Count 5.27 K/uL (4.8-10.8)
[2020-02-05 06:12] LABS: INR 1.4 (0.9-1.1); Prothrombin Time 14.2 Seconds (9.0-12.0)
[2020-02-05 06:52] LABS: Calcium 8.8 mg/dl (8.5-10.1); Creatinine Clr Calc Pharmacy 88.2 ml/min; Est GFR (African American) 95.3; Est GFR (Non-African American) 82.2; Potassium 3.3 mmol/L (3.5-5.1)
[2020-02-05] MEDS: FLUTICASONE/VILANTEROL 100/25MCG 14 PUFFS/INHALER INH SCH (07:41)
[2020-02-05] MEDS ORDERED: POTASSIUM CHLORIDE 20 MEQ TABCR PO STA (08:21)
[2020-02-05] MEDS ORDERED: WARFARIN SOD 7.5 MG TAB PO ONE (08:22)
[2020-02-05] MEDS ORDERED: ENOXAPARIN 150 MG/ML SYR SQ SCH (09:00)
[2020-02-05 09:45] VITALS: BP 98/67; PULSE 66
--- NOTE | 2020-02-05 10:19 | Hospitalist Progress Note ---
Date of Service February 05, 2020 Assessment & Plan (1) Syncope and collapse: Syncope DD: Could be secondary to hypoxia from PE/Hypotension CT head:There is no hemorrhage, mass effect, or evidence of acute territorial ischemia by CT criteria. Telemetry: no issues Discontinue Lisinopril as BP relatively low PT/OT eval done (2) Bilateral pulmonary embolism: Acute Bilateral PE Likely due to acute Right Popliteal vein DVT: Hypoxia: Resolved --CTA:Extensive bilateral pulmonary embolus. Emphysema and postoperative change from right upper lobe resection are similar to previous. A 3 mm right middle lobe pulmonary nodule is pathologically indeterminant and unchanged from 08/20/2019. Trace left pleural effusion. No airspace consolidation is seen typical for pneumonia. Hepatic steatosis. --Venous Doppler:There is occlusive deep venous thrombosis identified in the right popliteal vein. There is no sonographic evidence of deep venous thrombosis identified in the left lower extremity. There is thrombosis of the right superficial femoral and popliteal arteries. --Risk Factors: Former smoker, sedentary lifestyle, Recurrent prostate cancer, lung adenocarcinoma --ECHO: He was technically limited. The right ventricle is not well visualized. The right ventricle is grossly normal size. Quality to right ventricular systolic function appears mildly reduced in limited views. Doppler findings do not suggest pulmonary hypertension. There is trace tricuspid regurgitation. EF 60 to 65%. Mild concentric LVH. Mild aortic regurgitation. Normal right atrial pressure of 3 mmHg. --Limited drug choice for anticoagulation due to Financial/Insurance issues --Discussed with Oncology and --Continue Lovenox till INR is therapeutic --Continue Coumadin 7.5 mg today --Monitor INR:1.4 today --Needs follow up with Coumadin clinic upon discharge--apt scheduled on 02/06 --saturating well on room air (3) Lung nodule: H/O Smoking Unchanged as per CT Follow up as outpatient. (4) HTN (hypertension): Blood pressure relatively low lisinopril discontinued Monitor (5) Transaminitis: Likely due to hepatic steatosis Liver USD:Fatty infiltration of liver. Gallstones. Normal caliber bile ducts. LFTs trended down Monitor (6) Hypokalemia: Normal Mag levels Replace electrolytes as needed H/O Recurrent prostate Cancer H/O Lung Adenocarcinoma Follow up as outpatient Elevated Lactate Levels: Likely Type B lactic acidosis No obvious source of infection Blood Cx:No growth to date (7) Discharge planning issues: DVT Px: On Lovenox and coumadin Code Status Full Code Admission and Anticipated Discharge Date Admission Date: February 02, 2020 Anticipated date of discharge: 02/05/20 Subjective Patient is seen and examined at bedside Doing well today States having discomfort on ecchymotic site on forehead Eager to get discharged Denies any chest pain, SOB, dizziness, nausea, abdominal pain, bleeding issues Saturating well on room air Review of Systems Review of Systems: All systems reviewed & are unremarkable except as noted in HPI & below Physical Exam Physical Exam: Physical Exam: Vitals signs as noted above General Appearance:Moderately built and nourished, no apparent distress, Ecchymosis on left side of forehead Head: normocephalic, Atraumatic Eyes: normal inspection, EOMI Neck: supple, Trachea midline Respiratory/Chest: Normal breath sounds, CTA Cardiovascular: S1, S2, No murmur Abdomen/GI:Soft, Non tender, Bowel sounds present Extremities/Musculoskelatal:normal inspection, no edema Neurologic/Psych:AAOX3, grossly no focal neurological deficits Skin: normal color, warm Results & Data Results & Data ([facility]) Vital Signs (Past 12 Hours) Vital Signs Temp Pulse Pulse Resp BP BP Pulse Ox 02/05/20 09:42 36.8 C 66 61 16 116/77 98/67 L 94 02/04/20 23:37 36.8 C 61 16 116/77 94 Laboratory Results Short CBC 02/05/20 Range/Units 05:49 WBC 5.27 (4.8-10.8) K/uL Hgb 13.0 L (14.0-18.0) g/dL Hct 38.4 L (42-52) % Plt Count 144 (130-400) K/uL BMP 02/05/20 05:49 Sodium 141 Potassium 3.3 L Chloride 111 H Carbon Dioxide 25 BUN 19 H Creatinine 0.92 Glucose 106 H Calcium 8.8
--- NOTE | 2020-02-05 11:05 | Discharge Summary ---
Date of Service February 05, 2020 Admission HPI Per Admitting Provider 74 yo M with h/o prostate and lung cancer, reported in remission, presented after collapsing in his bathroom today. He reports being very SOB and dizzy for the past 4-5 weeks. He denies chest pain, and reports that 3 months ago he was able to walk a mile or climb his 14 steps in his home. However, now he is very symptomatic with minimal exertion. In the ER, workup revealed a bilateral PE. The patient reports a very sedentary lifestyle for a few months. He denies any new OTC, herbals or other homeopathic treatments, or taking anything outside of his prescirbed medication regimen. He denies any long trips or recent travel. He denies any injury to his legs, recent surgeries or hospitalizations, and denies any fevers. He also denies any history of blood clots in the past, and has no known family history of them. He denies any cough, or interaction with known COVID-19 positive patients. He lives at home with his son. Admission Exam Per Admitting Provider Physical Exam Physical Exam: CONSTITUTIONAL: WNWD, vitals as above, generally well- appearing EYES: PERRL, normal conjunctivae, no scleral icterus ENT: external ear and nose normal, oropharynx clear, MMM, poor dentition NECK: trachea midline RESPIRATORY: clear to auscultation bilaterally, no crackles, rales or wheezes, normal respiratory effort CARDIOVASCULAR: regular rate and rhythm, S1 and 2 heard without murmurs, gallops or rubs, no JVD, no peripheral edema CHEST: inspection of chest was normal GASTROINTESTINAL: soft, nontender, nondistended MUSCULOSKELETAL: strength 5/5 throughout, head is normocephalic and atraumatic SKIN: warm and dry NEUROLOGIC: CN 2-12 grossly intact, no sensory deficit, normal cognition, normal speech, no gross focal deficits. PSYCHIATRIC: alert cooperative and oriented to person, place and time. Principal Diagnosis Syncope Acute bilateral pulmonary embolism Right lower extremity deep vein thrombosis Hypokalemia Discharge Data Allergies Allergy/AdvReac Type Severity Reaction Status Date / Time No Known Allergies Allergy Verified 02/02/20 18:50 Consultations 02/02/20 20:58 ED Decision to Admit Stat 02/02/20 23:35 Consult Case Management - Discharge Planning Routine Procedures Performed --CTA:Extensive bilateral pulmonary embolus. Emphysema and postoperative change from right upper lobe resection are similar to previous. A 3 mm right middle lobe pulmonary nodule is pathologically indeterminant and unchanged from 08/20/2019. Trace left pleural effusion. No airspace consolidation is seen typical for pneumonia. Hepatic steatosis. --Venous Doppler:There is occlusive deep venous thrombosis identified in the right popliteal vein. There is no sonographic evidence of deep venous thrombosis identified in the left lower extremity. There is thrombosis of the right superficial femoral and popliteal arteries. -ECHO: He was technically limited. The right ventricle is not well visualized. The right ventricle is grossly normal size. Quality to right ventricular systolic function appears mildly reduced in limited views. Doppler findings do not suggest pulmonary hypertension. There is trace tricuspid regurgitation. EF 60 to 65%. Mild concentric LVH. Mild aortic regurgitation. Normal right atrial pressure of 3 mmHg. Ordered Studies 02/02/20 18:01 CT angio chest PE protocol Stat CT head/brain wo con Stat 02/02/20 21:04 US venous doppler LE BI Stat 02/03/20 08:00 US liver Routine Hospital Course (1) Syncope and collapse: Syncope DD: Could be secondary to hypoxia from PE/Hypotension CT head:There is no hemorrhage, mass effect, or evidence of acute territorial ischemia by CT criteria. Telemetry: no issues Discontinue Lisinopril as BP relatively low PT/OT eval done (2) Bilateral pulmonary embolism: Acute Bilateral PE Likely due to acute Right Popliteal vein DVT: Hypoxia: Resolved --CTA:Extensive bilateral pulmonary embolus. Emphysema and postoperative change from right upper lobe resection are similar to previous. A 3 mm right middle lobe pulmonary nodule is pathologically indeterminant and unchanged from 08/20/2019. Trace left pleural effusion. No airspace consolidation is seen typical for pneumonia. Hepatic steatosis. --Venous Doppler:There is occlusive deep venous thrombosis identified in the right popliteal vein. There is no sonographic evidence of deep venous thrombosis identified in the left lower extremity. There is thrombosis of the right superficial femoral and popliteal arteries. --Risk Factors: Former smoker, sedentary lifestyle, Recurrent prostate cancer, lung adenocarcinoma --ECHO: He was technically limited. The right ventricle is not well visualized. The right ventricle is grossly normal size. Quality to right ventricular systolic function appears mildly reduced in limited views. Doppler findings do not suggest pulmonary hypertension. There is trace tricuspid regurgitation. EF 60 to 65%. Mild concentric LVH. Mild aortic regurgitation. Normal right atrial pressure of 3 mmHg. --Limited drug choice for anticoagulation due to Financial/Insurance issues --Discussed with Oncology and --Continue Lovenox till INR is therapeutic --Continue Coumadin 7.5 mg today --Monitor INR:1.4 today --Needs follow up with Coumadin clinic upon discharge--apt scheduled on 02/06 --saturating well on room air (3) Lung nodule: H/O Smoking Unchanged as per CT Follow up as outpatient. (4) HTN (hypertension): Blood pressure relatively low lisinopril discontinued Monitor (5) Transaminitis: Likely due to hepatic steatosis Liver USD:Fatty infiltration of liver. Gallstones. Normal caliber bile ducts. LFTs trended down Monitor (6) Hypokalemia: Normal Mag levels Replace electrolytes as needed H/O Recurrent prostate Cancer H/O Lung Adenocarcinoma Follow up as outpatient Elevated Lactate Levels: Likely Type B lactic acidosis No obvious source of infection Blood Cx:No growth to date (7) Discharge planning issues: DVT Px: On Lovenox and coumadin Code Status Full Code Total Time Total Time Spent Total Time Spent (In Minutes): 38 minutes Total Time Includes: Examination of the Patient, Discharge Planning, Medication Reconciliation, Communication With Other Providers and Other Discharge Plan Discharge Items Patient Disposition: Home - Self-Care Reason For Visit: BILATERAL PE,ACUTE Discharge Diagnosis: Syncope Acute bilateral pulmonary embolism Right lower extremity deep vein thrombosis Hypokalemia Activity: Resume your previous activity Exercise/Sports: Gradually increase as tolerated Non-emergency contact: Primary Care Provider Call non-emergency contact if: you have any medication questions, your symptoms worsen, your pain is not controlled, your pain is worsening, your pain is unusual for you, your pain is concerning for you and you have a fever Follow-up/Referrals: Amauri Zavala MD [Primary Care Provider] - 02/09/20 10:25 am Diet: Heart Healthy Ambulatory Orders: Basic Metabolic Panel (Routine) Timeframe: 20200207 Location: Determined by Patient Ordered By: Jacek Bishop Prothrombin Time INR (Routine) Timeframe: 20200207 Location: Determined by Patient Ordered By: Jacek Bishop Addtl Attending Provider Instructions: Follow-up with your primary care physician Dr. Zavala on February 09, 2020 at 10:25 Am as scheduled Follow up with coumadin clinic on February 07, 2020 for management of your coumadin dosing Get Hypercoagulable work (Blood Test) up as outpatient to determine the possible reason for blood clots. Final blood culture results are pending at the time of discharge. Follow-up with your primary care physician for results. Your Blood pressure medications: Lisinopril is discontinued as your blood pressure is low during your hospital stay. Follow-up with your physician for further medication changes if needed. Your PT/INR is 1.4 today (02/05/20). YOUR TARGET PT/INR IS BETWEEN 2.0 TO 3.0 Take Coumadin 5mg tomorrow (02/06/20). Further Coumadin dosing is based on your blood test results--To be determined by Coumadin clinic or your primary care physician. Get Blood Test PT/INR and Basic metabolic panel on 02/07/20 and follow up with your primary care physician and Coumadin clinic as instructed. Continue to take Lovenox SQ injections until you follow up with coumadin clinic on 02/07/20. Further instructions as per coumadin clinic. Seek immediate medical attention if your symptoms reoccur or worsen Pending Studies at Discharge: Yes Studies:: Blood Cultures Stand-Alone Forms: My [facility], Smoking Cessation Medications and DC Order Prescriptions: New enoxaparin [Lovenox] 150 mg/mL Syringe 150 mg subcut Q24H 4 Days Qty: 4 RF: 0 potassium chloride 20 mEq tablet extended release 20 meq PO DAILY Qty: 10 RF: 0 warfarin [Coumadin] 1 mg tablet 1 mg PO UD Qty: 60 RF: 0 warfarin [Coumadin] 5 mg tablet 5 mg PO UD Qty: 60 RF: 0 warfarin [Coumadin] 2.5 mg tablet 2.5 mg PO UD Qty: 60 RF: 0 Continued budesonide-formoterol [Symbicort] 80-4.5 mcg/actuation HFA aerosol inhaler 2 puff INHALATION Q12H RF: 0 albuterol sulfate 90 mcg/actuation Hfa Aerosol Inhaler 2 puff INHALATION QID PRN (Reason: shortness of breath) RF: 0 Discontinued lisinopril 10 mg tablet 10 mg PO DAILY RF: 0 Discharge Orders: Discharge Order (Routine); Ordered 02/05/20 Ordered By: Jacek Alcaraz/Other Patient Handouts: Embolism Pulmonary, What to Know When TakingWarfarin, Warfarin tablets Admission Data Admit Date/Time: 02/02/20 22:14 Attending Provider: Jacek Bishop Admit Provider: Velma Burnette Primary Care Provider: Amauri Zavala Other Providers: Jos Alonzo Other Interventions: Discharge Summary Assessment (RN) Last Done: 02/05/20 09:42 DC Date/Time DO NOT enter until pt leaves facility: 02/05/20 13:02
== END 2020-02-05 13:02 | disposition home or self-care (01) | DRG 299 ==
LOC: ED 17:48 → SUATTDRO 22:14 → 2S 22:14 → 3E 02-04 10:16